=== PATIENT | female | born 1945 | race Caucasian/White ===

== ENCOUNTER → 2017-02-11 | Outpatient (CLI) | payer OTHER | END | disposition home or self-care (01) | LOC: LAB 08:29 | PROVIDERS: ATTEND Internal Medicine | DX: R44.2 Other hallucinations (principal); G43.909 Migraine, unspecified, not intractable, without status migrainosus | CPT/HCPCS: 36415; 82565; 84520 ==

== ENCOUNTER → 2017-02-21 | Outpatient (CLI) | payer OTHER, MEDICARE | END | disposition home or self-care (01) | LOC: LAB 07:56 | PROVIDERS: ATTEND Internal Medicine | DX: R90.89 Other abnormal findings on diagnostic imaging of central nervous system (principal) | CPT/HCPCS: 36415; 82565; 84520 ==

== ENCOUNTER → 2017-06-11 | Outpatient (CLI) | payer OTHER ==
[2017-06-11 09:58] LABS: Urine RBC None Seen /hpf (0 - 4)
[2017-06-11 10:02] LABS: Basophils # (auto) 0 uL; Basophils % (auto) 0.7 % (0.0-2.0); Eosinophils # (auto) 0.1 uL; Eosinophils % (auto) 3.2 % (0.0-7.0); Hematocrit 42.9 % (36.0-46.0); Hemoglobin 14.4 g/dL (12.2-16.2); Lymphocytes # (auto) 1.5 uL; Lymphocytes % (auto) 33.2 % (10.0-50.0); Mean Corpuscular Hemoglobin 29.1 pg (28.0-32.0); Mean Corpuscular Hgb Conc. 33.4 g/dL (32.0-36.0); Mean Corpuscular Volume 87.1 fL (80.0-100.0); Mean Platelet Volume 7.5 fL (6.9-10.8); Monocytes # (auto) 0.4 uL; Monocytes % (auto) 9.1 % (0.0-12.0); Neutrophils # (auto) 2.5 uL; Neutrophils % (auto) 53.8 % (37.0-80.0); Nucleated Red Blood Cells % 0.1 %; Platelet Count (auto) 187 10^3/uL (140-450); Red Cell Distribution Width 14.1 % (11.8-14.3); White Blood Cell 4.7 10^3/uL (4.4-10.8)
[2017-06-11 10:32] LABS: Albumin 3.7 g/dL (3.4-5.0); BUN/Creatinine Ratio 14.8; Bilirubin, Total 0.3 mg/dL (0.2-1.0); Calcium 8.8 mg/dL (8.5-10.1); Potassium 3.9 mmol/L (3.5-5.1); Total Protein 7.1 g/dL (6.4-8.2)
[2017-06-11 10:35] LABS: Urine Bilirubin Negative (Negative); Urine Blood Negative /uL (Negative); Urine Color Yellow (Yellow); Urine Glucose Normal (Normal); Urine Ketone Negative (Negative); Urine Nitrite Negative (Negative); Urine Squamous Epithelial Cell FEW /hpf (<5); Urine Urobilinogen Normal (Negative)
== END | disposition home or self-care (01) ==
LOC: LAB 09:37
PROVIDERS: ATTEND Internal Medicine
DX: I11.0 Hypertensive heart disease with heart failure (principal); I50.9 Heart failure, unspecified; J44.9 Chronic obstructive pulmonary disease, unspecified; G43.909 Migraine, unspecified, not intractable, without status migrainosus
CPT/HCPCS: 36415; 80053; 80061; 81001; 84443; 85025

== ENCOUNTER → 2017-12-04 | Outpatient (CLI) | payer MEDICARE, OTHER ==
[~2017-12-04] VITALS: Ht 147.3 cm; Wt 69.9 kg
[~2017-12-04] MED LIST: ACE3T PO; ADENOSINE 59 MG in GIVE UN-DILUTED 0 ML IV STA; ALBUTEROL SULF 2.5 MG/0.5ML(0.5%) NEB SOLN ONE; AMLO5TAB2 PO; CARI-277 PO; CYCL1TAB18 PO; FURO20TA3 PO; IPRAAER6 IN; IPRATROPIUM BROM 0.5 MG/2.5ML INH SOL ONE; MECL-87 PO; PERCOT PO; TOPI50TA32 PO; TRAZ50TA2 PO
[2017-12-04 09:21] VITALS: BP 137/79
== END | disposition home or self-care (01) ==
LOC: XY 08:12
PROVIDERS: ATTEND Internal Medicine
DX: J44.9 Chronic obstructive pulmonary disease, unspecified (principal); I11.0 Hypertensive heart disease with heart failure; I50.9 Heart failure, unspecified
CPT/HCPCS: 93017; J0153; 94640

== ENCOUNTER → 2017-12-25 | Outpatient (CLI) | payer OTHER ==
[~2017-12-25] MED LIST changes: -ADENOSINE 59 MG in GIVE UN-DILUTED 0 ML IV STA; -ALBUTEROL SULF 2.5 MG/0.5ML(0.5%) NEB SOLN ONE; -IPRATROPIUM BROM 0.5 MG/2.5ML INH SOL ONE
== END | disposition home or self-care (01) ==
LOC: XYW 08:09
PROVIDERS: ATTEND Internal Medicine
DX: J44.9 Chronic obstructive pulmonary disease, unspecified (principal); I11.0 Hypertensive heart disease with heart failure; I50.9 Heart failure, unspecified
CPT/HCPCS: 93306

== ENCOUNTER → 2018-01-06 | Outpatient (CLI) | payer OTHER, MEDICARE ==
[2018-01-06 13:19] LABS: Basophils # (auto) 0 uL; Basophils % (auto) 0.4 % (0.0-2.0); Eosinophils # (auto) 0.1 uL; Eosinophils % (auto) 2.9 % (0.0-7.0); Hematocrit 41.7 % (36.0-46.0); Hemoglobin 13.6 g/dL (12.2-16.2); Lymphocytes # (auto) 1.4 uL; Lymphocytes % (auto) 33.1 % (10.0-50.0); Mean Corpuscular Hemoglobin 28.4 pg (28.0-32.0); Mean Corpuscular Hgb Conc. 32.6 g/dL (32.0-36.0); Monocytes # (auto) 0.4 uL; Monocytes % (auto) 9.9 % (0.0-12.0); Neutrophils # (auto) 2.3 uL; Neutrophils % (auto) 53.7 % (37.0-80.0); Nucleated Red Blood Cells % 0.2 %; Platelet Count (auto) 193 10^3/uL (140-450); Red Blood Cells 4.79 10^6/uL (4.0-5.20); Red Cell Distribution Width 14.6 % (11.8-14.3); White Blood Cell 4.3 10^3/uL (4.4-10.8)
[2018-01-06 13:23] LABS: INR 0.91 (0.9-1.15); Partial Thromboplastin Time 23.6 sec (23.78-33.04); Prothrombin Time 9.8 sec (9.27-12.13)
[2018-01-06 14:20] LABS: Albumin 3.9 g/dL (3.4-5.0); Bilirubin, Total 0.3 mg/dL (0.2-1.0); Calcium 8.6 mg/dL (8.5-10.1); Potassium 3.9 mmol/L (3.5-5.1); Total Protein 7.2 g/dL (6.4-8.2)
== END | disposition home or self-care (01) ==
LOC: LAB 12:43
PROVIDERS: ATTEND Internal Medicine
DX: Z01.818 Encounter for other preprocedural examination (principal); I11.0 Hypertensive heart disease with heart failure; I50.9 Heart failure, unspecified; J44.9 Chronic obstructive pulmonary disease, unspecified
CPT/HCPCS: 36415; 80053; 85025; 85610; 85730

== ENCOUNTER 2018-01-08 10:36 | Day surgery (SDC) | payer MEDICARE, OTHER ==
[~2018-01-08] VITALS: Ht 147.3 cm; Wt 69.9 kg
[2018-01-08] MEDS ORDERED: LIDOCAINE 2%HCL (LOCAL ANESTH.) INJ 20ML MDV ONE (10:59)
[2018-01-08] MEDS ORDERED: IOHEXOL 350 MG/ML 100ML IJ ONE (10:59)
[2018-01-08] MEDS ORDERED: fentaNYL CITRATE 100 MCG/2 ML VL ONE (11:22)
[2018-01-08] MEDS ORDERED: ANGIOMAX 250 MG VIAL IV ONE (11:22)
[2018-01-08] MEDS ORDERED: SODIUM CHL 0.9% 0 ML ONE (11:23)
[2018-01-08] MEDS ORDERED: MIDAZOLAM HCL 1MG/1ML-2 ML VIAL ONE (11:23)
== END 2018-01-08 14:10 | disposition home or self-care (01) ==
LOC: CATH 10:36
PROVIDERS: ATTEND Internal Medicine
DX: I25.10 Atherosclerotic heart disease of native coronary artery without angina pectoris (principal); E66.9 Obesity, unspecified; I50.9 Heart failure, unspecified; J44.9 Chronic obstructive pulmonary disease, unspecified; I10 Essential (primary) hypertension; I73.9 Peripheral vascular disease, unspecified; Z88.1 Allergy status to other antibiotic agents; Z88.2 Allergy status to sulfonamides; Z88.8 Allergy status to other drugs, medicaments and biological substances; Z68.32 Body mass index [BMI] 32.0-32.9, adult; Z79.2 Long term (current) use of antibiotics; Z79.899 Other long term (current) drug therapy; Z79.891 Long term (current) use of opiate analgesic; Z86.73 Personal history of transient ischemic attack (TIA), and cerebral infarction without residual deficits
CPT/HCPCS: C1760; C1894; J1644; J2250; J3010; J7030; Q9967; 93458; 99152

== ENCOUNTER 2018-05-18 12:53 | Inpatient (IN) | payer MEDICARE, OTHER ==
[~2018-05-18] VITALS: Ht 149.9 cm; Wt 69.9 kg
[~2018-05-18 12:53] MED LIST changes: +AMLO5TAB13 PO; -AMLO5TAB2 PO
[2018-05-18] MEDS ORDERED: SODIUM CHLORIDE 0.9% 1,000 ML IVB ONE (13:14)
[2018-05-18 14:01] LABS: Basophils # (auto) 0 uL; Basophils % (auto) 0.4 % (0.0-2.0); Eosinophils # (auto) 0.1 uL; Eosinophils % (auto) 1.9 % (0.0-7.0); Hematocrit 42.7 % (36.0-46.0); Hemoglobin 14.2 g/dL (12.2-16.2); Lymphocytes # (auto) 1.7 uL; Lymphocytes % (auto) 28.2 % (10.0-50.0); Mean Corpuscular Hemoglobin 28.4 pg (28.0-32.0); Mean Corpuscular Hgb Conc. 33.1 g/dL (32.0-36.0); Mean Corpuscular Volume 85.8 fL (80.0-100.0); Monocytes # (auto) 0.6 uL; Monocytes % (auto) 9.5 % (0.0-12.0); Neutrophils # (auto) 3.6 uL; Platelet Count (auto) 191 10^3/uL (140-450); Red Blood Cells 4.98 10^6/uL (4.0-5.20); Red Cell Distribution Width 14.5 % (11.8-14.3)
[2018-05-18 14:16] LABS: INR 0.93 (0.9-1.15)
[2018-05-18 14:19] LABS: Albumin 3.7 g/dL (3.4-5.0); Anion Gap 7 (5-15); Blood Urea Nitrogen 16 mg/dL (7-18); Calcium 8.6 mg/dL (8.5-10.1); Carbon Dioxide 24 mmol/L (21-32); Chloride 109 mmol/L (98-107); Glucose 97 mg/dL (74-106); Magnesium 2.6 mg/dL (1.6-2.6); Potassium 3.9 mmol/L (3.5-5.1); Sodium 140 mmol/L (136-145)
[2018-05-18 14:25] LABS: Alanine Aminotransferase 16 U/L (13-56); Alkaline Phosphatase 101 U/L (45-117); Aspartate Aminotransferase 13 U/L (15-37); BUN/Creatinine Ratio 18.6; Bilirubin, Total 0.3 mg/dL (0.2-1.0); GFR African American 84 mL/min; GFR Non-African American 69 mL/min
[2018-05-18] MEDS ORDERED: ACETAMINOPHEN 325 MG TAB PO ONE (14:30)
[2018-05-18 14:45] LABS: Urine Bacteria FEW /hpf (None Seen); Urine Blood Negative /uL (Negative); Urine Mucus FEW (None Seen); Urine Specific Gravity 1.009 (1.001-1.035); Urine WBC 2 /hpf (0 - 5)
[2018-05-18] MEDS ORDERED: HYDROcodone-ACET 10/325MG TAB PO ONE (16:15)
[2018-05-18] MEDS ORDERED: MECLIZINE HCL 25 MG TAB PO PRN (17:30)
[2018-05-18] MEDS ORDERED: cefTRIAXone 1GM/50ML D5W 50 ML IV ONE (17:30)
[2018-05-18] MEDS ORDERED: MORPHINE SULFATE 4 MG/ML SYR/VIAL IV PRN (17:45)
[2018-05-18] MEDS ORDERED: DOCUSATE SOD 100 MG CAP PO PRN (17:45)
[2018-05-18] MEDS ORDERED: ONDANSETRON HCL 4 MG/2 ML VIAL IV PRN (17:45)
[2018-05-18] MEDS ORDERED: ACETAMINOPHEN 325 MG TAB PO PRN (17:45)
[2018-05-18] MEDS ORDERED: NITROGLYCERIN 0.4 MG SL TAB SL PRN (17:45)
[2018-05-18] MEDS: ALBUTEROL SULF 2.5 MG/0.5ML(0.5%) NEB SOLN NEB SCH (18:15)
[2018-05-18] MEDS: IPRATROPIUM BROM 0.5 MG/2.5ML INH SOL NEB SCH (18:15)
[2018-05-18] MEDS: ENOXAPARIN SOD 40 MG/0.4 ML SYRINGE SC SCH (18:37)
[2018-05-18] MEDS: SODIUM CHLOR 0.9% PF (SALINE LOCK) 10ML VIAL/SYR IV SCH (22:08)
[2018-05-18] MEDS: TOPIRAMATE 25 MG TAB PO SCH (22:11)
[2018-05-18] MEDS: METOPROLOL TARTRATE 25 MG TAB PO SCH (22:11)
[2018-05-18] MEDS: FAMOTIDINE 20 MG TAB PO SCH (22:11)
[2018-05-18] MEDS: TEMAZEPAM 15 MG CAP PO PRN (23:38)
[2018-05-18 23:43] VITALS: BP 145/72
[2018-05-19] MEDS: IPRATROPIUM BROM 0.5 MG/2.5ML INH SOL NEB SCH ×4 (00:30→19:21)
[2018-05-19] MEDS: ALBUTEROL SULF 2.5 MG/0.5ML(0.5%) NEB SOLN NEB SCH ×4 (00:30→19:21)
[2018-05-19 04:15] VITALS: BP 153/75
[2018-05-19] MEDS: HYDROcodone-ACET 5/325MG TAB PO PRN (04:28)
[2018-05-19 05:00] VITALS: BP 153/75
[2018-05-19] MEDS: SODIUM CHLOR 0.9% PF (SALINE LOCK) 10ML VIAL/SYR IV SCH ×3 (05:31→22:01)
[2018-05-19 07:49] LABS: Basophils # (auto) 0 uL; Basophils % (auto) 0.4 % (0.0-2.0); Eosinophils # (auto) 0.1 uL; Eosinophils % (auto) 2.1 % (0.0-7.0); Hematocrit 38.4 % (36.0-46.0); Hemoglobin 12.5 g/dL (12.2-16.2); Lymphocytes # (auto) 2.1 uL; Lymphocytes % (auto) 41.9 % (10.0-50.0); Mean Corpuscular Hgb Conc. 32.5 g/dL (32.0-36.0); Mean Corpuscular Volume 86.2 fL (80.0-100.0); Monocytes # (auto) 0.5 uL; Monocytes % (auto) 9.3 % (0.0-12.0); Neutrophils # (auto) 2.3 uL; Neutrophils % (auto) 46.3 % (37.0-80.0); Nucleated Red Blood Cells % 0.1 %; Platelet Count (auto) 171 10^3/uL (140-450); Red Blood Cells 4.46 10^6/uL (4.0-5.20); Red Cell Distribution Width 14.5 % (11.8-14.3); White Blood Cell 5.1 10^3/uL (4.4-10.8)
[2018-05-19 08:12] LABS: Potassium 3.8 mmol/L (3.5-5.1)
[2018-05-19 08:19] LABS: Albumin 3.4 g/dL (3.4-5.0); BUN/Creatinine Ratio 19.5; Bilirubin, Total 0.3 mg/dL (0.2-1.0); Calcium 8.6 mg/dL (8.5-10.1); Total Protein 6.4 g/dL (6.4-8.2)
[2018-05-19 09:00] VITALS: BP 142/68
[2018-05-19] MEDS: MULTIPLE VITAMIN TAB PO SCH (10:00)
[2018-05-19] MEDS: POTASSIUM CHLORIDE 8 MEQ TAB PO SCH (11:11)
[2018-05-19] MEDS: FAMOTIDINE 20 MG TAB PO SCH ×2 (11:12→22:02)
[2018-05-19] MEDS: TOPIRAMATE 25 MG TAB PO SCH ×2 (11:13→22:02)
[2018-05-19] MEDS: HCTZ 25 MG TAB PO SCH (11:13)
[2018-05-19] MEDS: amLODIPine BESYLATE 5 MG TAB PO SCH (11:14)
[2018-05-19] MEDS: ENOXAPARIN SOD 40 MG/0.4 ML SYRINGE SC SCH (11:14)
[2018-05-19] MEDS: METOPROLOL TARTRATE 25 MG TAB PO SCH ×2 (11:14→22:02)
[2018-05-19] MEDS: MORPHINE SULFATE 4 MG/ML SYR/VIAL IV PRN ×2 (11:23→16:13)
[2018-05-19] MEDS: cefTRIAXone 1GM/50ML D5W 50 ML IV SCH (11:23)
[2018-05-19 13:00] VITALS: BP 137/71
[2018-05-19 17:00] VITALS: BP 152/61
[2018-05-19] MEDS: TEMAZEPAM 15 MG CAP PO PRN (22:02)
[2018-05-19 22:20] VITALS: BP 134/70
[2018-05-20] MEDS: ALBUTEROL SULF 2.5 MG/0.5ML(0.5%) NEB SOLN NEB SCH ×3 (00:45→11:42)
[2018-05-20] MEDS: IPRATROPIUM BROM 0.5 MG/2.5ML INH SOL NEB SCH ×3 (00:46→11:42)
[2018-05-20 05:07] VITALS: BP 133/78
[2018-05-20] MEDS: SODIUM CHLOR 0.9% PF (SALINE LOCK) 10ML VIAL/SYR IV SCH ×2 (06:05→14:00)
[2018-05-20 06:20] LABS: Basophils # (auto) 0 uL; Basophils % (auto) 0.6 % (0.0-2.0); Eosinophils # (auto) 0.2 uL; Eosinophils % (auto) 3.8 % (0.0-7.0); Hematocrit 39.5 % (36.0-46.0); Hemoglobin 13.1 g/dL (12.2-16.2); Lymphocytes # (auto) 1.5 uL; Mean Corpuscular Hemoglobin 28.5 pg (28.0-32.0); Mean Corpuscular Hgb Conc. 33.2 g/dL (32.0-36.0); Monocytes # (auto) 0.6 uL; Monocytes % (auto) 12.1 % (0.0-12.0); Neutrophils # (auto) 2.7 uL; Neutrophils % (auto) 53.5 % (37.0-80.0); Nucleated Red Blood Cells % 0.2 %; Platelet Count (auto) 166 10^3/uL (140-450); Red Blood Cells 4.59 10^6/uL (4.0-5.20); Red Cell Distribution Width 14.4 % (11.8-14.3)
[2018-05-20 06:38] LABS: Calcium 8.7 mg/dL (8.5-10.1); Potassium 3.4 mmol/L (3.5-5.1)
[2018-05-20 06:40] LABS: BUN/Creatinine Ratio 23.2
[2018-05-20 08:57] VITALS: BP 135/71
[2018-05-20] MEDS: cefTRIAXone 1GM/50ML D5W 50 ML IV SCH (09:46)
[2018-05-20] MEDS: POTASSIUM CHLORIDE 8 MEQ TAB PO SCH (09:46)
[2018-05-20] MEDS: HCTZ 25 MG TAB PO SCH (09:46)
[2018-05-20] MEDS: MULTIPLE VITAMIN TAB PO SCH (09:47)
[2018-05-20] MEDS: METOPROLOL TARTRATE 25 MG TAB PO SCH (09:47)
[2018-05-20] MEDS: FAMOTIDINE 20 MG TAB PO SCH (09:47)
[2018-05-20] MEDS: amLODIPine BESYLATE 5 MG TAB PO SCH (09:47)
[2018-05-20] MEDS: ENOXAPARIN SOD 40 MG/0.4 ML SYRINGE SC SCH (09:48)
[2018-05-20] MEDS: HYDROcodone-ACET 5/325MG TAB PO PRN (09:48)
[2018-05-20] MEDS: TOPIRAMATE 25 MG TAB PO SCH (09:48)
[2018-05-20] MEDS ORDERED: POTASSIUM CHL 20 Meq TABLET PO ONE (10:00)
[2018-05-20 13:09] VITALS: BP 139/81
[2018-05-20 14:11] VITALS: BP 139/81
== END 2018-05-20 15:40 | disposition home or self-care (01) | DRG 65 ==
LOC: ER 12:53 → EDBD 12:53 → TELE 12:54 → TELE-CENTR 05-19 03:50
PROVIDERS: ADMIT Internal Medicine; ATTEND Internal Medicine
DX: I63.9 Cerebral infarction, unspecified (principal); N39.0 Urinary tract infection, site not specified; E87.6 Hypokalemia; G43.909 Migraine, unspecified, not intractable, without status migrainosus; H35.30 Unspecified macular degeneration; I10 Essential (primary) hypertension; J44.9 Chronic obstructive pulmonary disease, unspecified; K57.30 Diverticulosis of large intestine without perforation or abscess without bleeding; Z86.718 Personal history of other venous thrombosis and embolism; Z86.73 Personal history of transient ischemic attack (TIA), and cerebral infarction without residual deficits; Z90.710 Acquired absence of both cervix and uterus; Z90.49 Acquired absence of other specified parts of digestive tract; Z98.51 Tubal ligation status; R42 Dizziness and giddiness; M46.92 Unspecified inflammatory spondylopathy, cervical region; Z88.2 Allergy status to sulfonamides; Z88.7 Allergy status to serum and vaccine; Z88.8 Allergy status to other drugs, medicaments and biological substances
CPT/HCPCS: 36415; 70450; 71045; 80048; 80053; 81001; 82962; 83735; 84484; 85025; 85610; 85730; 87086; 93005; 93886; 94640; 94761; 96360; G0378; J0696

== ENCOUNTER → 2018-05-28 | Outpatient (CLI) | payer OTHER ==
[2018-05-28 09:32] LABS: Basophils # (auto) 0 uL; Basophils % (auto) 0.6 % (0.0-2.0); Eosinophils # (auto) 0.1 uL; Eosinophils % (auto) 2.6 % (0.0-7.0); Hemoglobin 13.4 g/dL (12.2-16.2); Lymphocytes # (auto) 1.4 uL; Lymphocytes % (auto) 34.1 % (10.0-50.0); Mean Corpuscular Hemoglobin 28.3 pg (28.0-32.0); Mean Corpuscular Hgb Conc. 32.6 g/dL (32.0-36.0); Mean Corpuscular Volume 86.7 fL (80.0-100.0); Monocytes # (auto) 0.4 uL; Monocytes % (auto) 10.6 % (0.0-12.0); Neutrophils # (auto) 2.1 uL; Neutrophils % (auto) 52.1 % (37.0-80.0); Nucleated Red Blood Cells % 0.2 %; Platelet Count (auto) 169 10^3/uL (140-450); Red Blood Cells 4.73 10^6/uL (4.0-5.20); Red Cell Distribution Width 14.2 % (11.8-14.3)
[2018-05-28 10:45] LABS: Albumin 3.7 g/dL (3.4-5.0); Calcium 8.7 mg/dL (8.5-10.1); Potassium 3.6 mmol/L (3.5-5.1)
[2018-05-28 11:00] LABS: BUN/Creatinine Ratio 19.1; Bilirubin, Total 0.4 mg/dL (0.2-1.0); Total Protein 6.9 g/dL (6.4-8.2)
== END | disposition home or self-care (01) ==
LOC: LAB 09:13
PROVIDERS: ATTEND Physician Assistant
DX: I10 Essential (primary) hypertension (principal); J44.9 Chronic obstructive pulmonary disease, unspecified; M54.9 Dorsalgia, unspecified; R07.1 Chest pain on breathing; R09.89 Other specified symptoms and signs involving the circulatory and respiratory systems
CPT/HCPCS: 36415; 80053; 80061; 83036; 85025

== ENCOUNTER → 2019-02-09 | Outpatient (CLI) | payer OTHER ==
[~2019-02-09] MED LIST changes: +ALBUTEROL SULF 2.5 MG/0.5ML(0.5%) NEB SOLN ONE; -CARI-277 PO; -CYCL1TAB18 PO; +FLUT250M2 INH; +MONT10TA34 PO
== END | disposition home or self-care (01) ==
LOC: RT 09:00
PROVIDERS: ATTEND Internal Medicine Pulmonary Disease
DX: R06.00 Dyspnea, unspecified (principal)
CPT/HCPCS: 94060; J7611

== ENCOUNTER → 2019-03-24 | Outpatient (CLI) | payer OTHER ==
[~2019-03-24] MED LIST changes: -ALBUTEROL SULF 2.5 MG/0.5ML(0.5%) NEB SOLN ONE; -AMLO5TAB13 PO; +AMLO5TAB15 PO
== END | disposition home or self-care (01) ==
LOC: XY 10:13
PROVIDERS: ATTEND Internal Medicine Pulmonary Disease
DX: R06.09 Other forms of dyspnea (principal); R06.02 Shortness of breath; Z86.718 Personal history of other venous thrombosis and embolism
CPT/HCPCS: 78582; A9540; A9558

== ENCOUNTER → 2019-04-01 | Outpatient (CLI) | payer OTHER ==
[2019-04-01 10:37] LABS: Basophils # (auto) 0 uL; Basophils % (auto) 0.8 % (0.0-2.0); Eosinophils # (auto) 0.1 uL; Hematocrit 41.4 % (36.0-46.0); Hemoglobin 13.8 g/dL (12.2-16.2); Lymphocytes % (auto) 24.6 % (10.0-50.0); Mean Corpuscular Hemoglobin 28.4 pg (28.0-32.0); Mean Corpuscular Hgb Conc. 33.3 g/dL (32.0-36.0); Mean Corpuscular Volume 85.1 fL (80.0-100.0); Monocytes # (auto) 0.5 uL; Neutrophils # (auto) 2.6 uL; Neutrophils % (auto) 60.6 % (37.0-80.0); Platelet Count (auto) 168 10^3/uL (140-450); Red Blood Cells 4.87 10^6/uL (4.0-5.20); White Blood Cell 4.2 10^3/uL (4.4-10.8)
[2019-04-01 10:48] LABS: Albumin 3.8 g/dL (3.4-5.0); BUN/Creatinine Ratio 16.7; Calcium 8.5 mg/dL (8.5-10.1); Potassium 3.9 mmol/L (3.5-5.1)
[2019-04-01 10:50] LABS: Bilirubin, Total 0.6 mg/dL (0.2-1.0)
== END | disposition home or self-care (01) ==
LOC: LAB 10:11
PROVIDERS: ATTEND Physician Assistant
DX: I10 Essential (primary) hypertension (principal); I25.10 Atherosclerotic heart disease of native coronary artery without angina pectoris; G62.9 Polyneuropathy, unspecified
CPT/HCPCS: 36415; 80053; 80061; 85025

== ENCOUNTER 2019-05-17 21:44 | Inpatient (IN) | payer OTHER ==
[~2019-05-17] VITALS: Ht 149.9 cm; Wt 76.0 kg
[2019-05-17] MEDS ORDERED: IPRATROPIUM BROM 0.5 MG/2.5ML INH SOL HHN ONE (22:45)
[2019-05-17] MEDS ORDERED: HYDROcodone-ACET 7.5/325MG TAB PO ONE (22:45)
[2019-05-17] MEDS ORDERED: ALBUTEROL SULF 2.5 MG/0.5ML(0.5%) NEB SOLN HHN ONE (22:45)
[2019-05-17 22:57] LABS: Basophils # (auto) 0 uL; Basophils % (auto) 0.5 % (0.0-2.0); Eosinophils # (auto) 0.1 uL; Eosinophils % (auto) 2.2 % (0.0-7.0); Hematocrit 43.9 % (36.0-46.0); Hemoglobin 14.6 g/dL (12.2-16.2); Lymphocytes # (auto) 1.9 uL; Lymphocytes % (auto) 31.3 % (10.0-50.0); Mean Corpuscular Hemoglobin 28.5 pg (28.0-32.0); Mean Corpuscular Hgb Conc. 33.2 g/dL (32.0-36.0); Mean Corpuscular Volume 85.8 fL (80.0-100.0); Monocytes # (auto) 0.8 uL; Neutrophils # (auto) 3.3 uL; Platelet Count (auto) 206 10^3/uL (140-450); Red Blood Cells 5.11 10^6/uL (4.0-5.20); Red Cell Distribution Width 14.1 % (11.8-14.3); White Blood Cell 6.2 10^3/uL (4.4-10.8)
[2019-05-17 23:19] LABS: Alanine Aminotransferase 20 U/L (13-56); Albumin 3.9 g/dL (3.4-5.0); Anion Gap 6 (5-15); Aspartate Aminotransferase 13 U/L (15-37); BUN/Creatinine Ratio 15.4; Blood Urea Nitrogen 16 mg/dL (7-18); Calcium 8.7 mg/dL (8.5-10.1); Carbon Dioxide 30 mmol/L (21-32); Chloride 106 mmol/L (98-107); GFR African American 67 mL/min; GFR Non-African American 55 mL/min; Glucose 90 mg/dL (74-106); Potassium 3.3 mmol/L (3.5-5.1); Sodium 142 mmol/L (136-145)
[2019-05-17 23:21] LABS: Urine Bacteria NONE SEEN /hpf (None Seen); Urine Blood Negative /uL (Negative); Urine Specific Gravity 1.007 (1.001-1.035); Urine WBC 1 /hpf (0 - 5)
[2019-05-17 23:23] LABS: Alkaline Phosphatase 106 U/L (45-117); Bilirubin, Total 0.2 mg/dL (0.2-1.0); Total Protein 7.3 g/dL (6.4-8.2)
[2019-05-18] VITALS (9 sets, daily range): BP systolic 101–126; BP diastolic 55–79
[2019-05-18] MEDS ORDERED: POTASSIUM EFFERVESENT TAB 25 MEQ PO ONE (00:30)
[2019-05-18] MEDS ORDERED: KETOROLAC TROMETH 30 MG/ML 1ML VIAL IV ONE (00:30)
[2019-05-18] MEDS ORDERED: TEMAZEPAM 15 MG CAP PO PRN (02:15)
[2019-05-18] MEDS ORDERED: ACETAMINOPHEN 500 MG TAB PO PRN (02:15)
--- NOTE | 2019-05-18 02:30 | NUR ---
RECEIVED PATIENT FROM ED, AWAKE, ALERT, ORIENTED X4. NO S/S OF RESPIRATORY DISTRESS, DENIES ANY PAIN. SKIN IS INTACT. ORIENTED ON PLAN OF CARE. BED IS LOCKED AND IN LOWEST POSITION, SIDE RAILS UP X2, CALL LIGHT WITHIN REACH. WILL CONTINUE TO MONITOR
[2019-05-18] MEDS ORDERED: MORPHINE SULF INJ 2 MG/ML SYRINGE 1ML IV PRN (02:45)
[2019-05-18] MEDS ORDERED: IPRATROPIUM BROM 0.5 MG/2.5ML INH SOL NEB PRN (02:45)
[2019-05-18] MEDS ORDERED: ALBUTEROL SULF 2.5 MG/0.5ML(0.5%) NEB SOLN NEB PRN (02:45)
[2019-05-18] MEDS ORDERED: MECLIZINE HCL 25 MG TAB PO PRN (03:00)
[2019-05-18] MEDS: HYDROcodone-ACET 5/325MG TAB PO PRN ×3 (05:05→18:40)
[2019-05-18] MEDS: IPRATROPIUM BROM 0.5 MG/2.5ML INH SOL NEB SCH ×3 (06:02→19:36)
[2019-05-18] MEDS: ALBUTEROL SULF 2.5 MG/0.5ML(0.5%) NEB SOLN NEB SCH ×3 (06:02→19:37)
[2019-05-18 06:17] LABS: Basophils # (auto) 0 uL; Basophils % (auto) 0.2 % (0.0-2.0); Eosinophils # (auto) 0.1 uL; Eosinophils % (auto) 1.5 % (0.0-7.0); Hematocrit 38.7 % (36.0-46.0); Lymphocytes # (auto) 1.8 uL; Lymphocytes % (auto) 28.8 % (10.0-50.0); Mean Corpuscular Hemoglobin 28.9 pg (28.0-32.0); Mean Corpuscular Hgb Conc. 33.5 g/dL (32.0-36.0); Mean Corpuscular Volume 86.2 fL (80.0-100.0); Monocytes # (auto) 0.8 uL; Monocytes % (auto) 12.3 % (0.0-12.0); Neutrophils # (auto) 3.6 uL; Neutrophils % (auto) 57.2 % (37.0-80.0); Nucleated Red Blood Cells % 0.2 %; Platelet Count (auto) 185 10^3/uL (140-450); Red Blood Cells 4.49 10^6/uL (4.0-5.20); Red Cell Distribution Width 14.5 % (11.8-14.3); White Blood Cell 6.3 10^3/uL (4.4-10.8)
[2019-05-18 06:29] LABS: Calcium 8.4 mg/dL (8.5-10.1); Potassium 4.1 mmol/L (3.5-5.1)
[2019-05-18 06:32] LABS: BUN/Creatinine Ratio 18.9
--- NOTE | 2019-05-18 07:30 | NUR ---
Opening Shift Note RECEIVED REPORT FROM NOC RN. Assumed care of patient, awake and alert. PATIENT ON OXYGEN AT 2 LPM VIA NASAL CANNULA WITH no S/S of distress/SOB or pain. BED IN LOWEST, LOCKED POSITION WITH SIDERAILS UP x2 AND CALL LIGHT WITHIN REACH. Instructed on POC and to call for assist PRN, will continue to monitor for changes Q1hr and PRN.
--- NOTE | 2019-05-18 07:43 | NUR ---
CARE ENDORSED TO AM SHIFT RN
[2019-05-18] MEDS ORDERED: TOPIRAMATE 25 MG TAB PO SCH (10:00)
[2019-05-18] MEDS: amLODIPine BESYLATE 5 MG TAB PO SCH (10:25)
[2019-05-18] MEDS: FUROSEMIDE 40 MG TAB PO SCH (10:25)
[2019-05-18] MEDS ORDERED: DOXYCYCLINE 100 MG TAB/CAP PO ONE (10:45)
--- NOTE | 2019-05-18 13:08 | NUR ---
DR. SARGENT AT BEDSIDE.
[2019-05-18] MEDS ORDERED: ADENOSINE 63 MG in GIVE UN-DILUTED 0 ML IV STA (13:30)
--- NOTE | 2019-05-18 13:45 | NUR ---
Respiratory note: PT AT PROCEDURE. UNABLE TO DRAW ABG ON RA AT THIS TIME. WILL INFORM RN.
[2019-05-18] MEDS: methylPREDNISolone SOD SUCC 125 MG/2 ML VL IV SCH ×2 (15:36→21:49)
--- NOTE | 2019-05-18 17:00 | NUR ---
Respiratory note: PT ON RA SPO2 DID NOT FALL BELOW 90%. UNABLE TO DRAW ABG AT THIS TIME. RT SUGGEST AMBULATION. WILL ENDORSE TO NOC SHIFT.
--- NOTE | 2019-05-18 19:35 | NUR ---
RESPIRATORY CULTURE AND URINE SEND OUT MISCELLANEOUS SAMPLE SENT TO LAB
[2019-05-18] MEDS: DOXYCYCLINE 100 MG TAB/CAP PO SCH (21:49)
[2019-05-18] MEDS: MONTELUKAST SODIUM 10 MG TAB PO SCH (21:49)
[2019-05-18] MEDS: traZODone HCL 50 MG TAB PO SCH (21:49)
[2019-05-19] MEDS: IPRATROPIUM BROM 0.5 MG/2.5ML INH SOL NEB SCH ×4 (00:17→19:11)
[2019-05-19] MEDS: ALBUTEROL SULF 2.5 MG/0.5ML(0.5%) NEB SOLN NEB SCH ×4 (00:17→19:10)
[2019-05-19 05:02] VITALS: BP 102/71
[2019-05-19] MEDS: methylPREDNISolone SOD SUCC 125 MG/2 ML VL IV SCH ×3 (05:31→21:42)
[2019-05-19 05:39] LABS: INR 0.96 (0.9-1.15); Partial Thromboplastin Time 23.5 sec (23.64-32.05)
[2019-05-19 05:53] LABS: BUN/Creatinine Ratio 24.3; Calcium 9.2 mg/dL (8.5-10.1); Potassium 3.9 mmol/L (3.5-5.1)
--- NOTE | 2019-05-19 07:38 | NUR ---
CARE ENDORSED TO AM SHIFT RN
[2019-05-19 08:00] VITALS: BP 141/73
[2019-05-19] MEDS: DOXYCYCLINE 100 MG TAB/CAP PO SCH ×2 (09:21→21:44)
[2019-05-19] MEDS: FUROSEMIDE 40 MG TAB PO SCH (09:22)
[2019-05-19] MEDS: amLODIPine BESYLATE 5 MG TAB PO SCH (09:22)
[2019-05-19] MEDS: SOD CHL 0.45% 1,000 ML IV SCH ×2 (10:45→21:07)
[2019-05-19] MEDS: HYDROcodone-ACET 5/325MG TAB PO PRN (10:45)
[2019-05-19] MEDS: oxyCODONE ER 10 MG TAB PO PRN (11:08)
[2019-05-19 12:00] VITALS: BP 137/74
[2019-05-19] MEDS ORDERED: IOHEXOL 350 MG/ML 100ML IJ ONE (13:52)
--- NOTE | 2019-05-19 15:00 | NUR ---
BACK TO ROOM CTA CHEST COMPLETED
[2019-05-19 16:59] VITALS: BP 124/65
--- NOTE | 2019-05-19 18:43 | NUR ---
IV insertion IV access obtained, via clean sterile technique by inserting 22 gauge catheter at after attempt(s). IV secured properly. No trauma to site. Patient tolerated procedure well.
--- NOTE | 2019-05-19 19:10 | NUR ---
OPENING NOTE- NOC SHIFT PATIENT IS IN BED, BED IS LOCKED AT LOWEST, BED RAILS UP X2 AND HEAD OF BED IS UP>30 DEGREES FOR SAFETY PRECAUTIONS. PATIENT DENIES PAIN AT THIS TIME. PATIENT WEARING NC AT 2L. PATIENT BECOMES EASILY DISTRESSED WITH MINIMAL ACTIVITY AND STATES "IT IS VERY DIFFICULT TO CATCH MY BREATH." DISCUSSED POC WITH PATIENT AND INSTRUCTED PATIENT TO CALL PRN; PATIENT VERBALIZED UNDERSTANDING. WILL CONTINUE TO MONITOR Q1H AND PRN.
--- NOTE | 2019-05-19 20:00 | NUR ---
DOCTOR MARSHALL AT BEDSIDE FOR NEURO CONSULT.
[2019-05-19] MEDS: traZODone HCL 50 MG TAB PO SCH (21:42)
[2019-05-19] MEDS: MONTELUKAST SODIUM 10 MG TAB PO SCH (21:43)
[2019-05-19] MEDS: METOCLOPRAMIDE HCL 10 MG TAB PO SCH (21:43)
[2019-05-19 21:52] VITALS: BP 150/80
--- NOTE | 2019-05-19 22:10 | NUR ---
LOW SAT O2 WITHOUT NC OXYGEN. PATIENT UP TO BATHROOM. STEADY GAIT NOTED. PATIENT IS IN DISTRESS WITH MINIMAL ACTIVITY. SAT O2 WITHOUT NC OXYGEN TO BATHROOM WAS 87% UPON RETURN TO BED.
[2019-05-20] VITALS (7 sets, daily range): BP systolic 118–160; BP diastolic 58–88
[2019-05-20] MEDS: IPRATROPIUM BROM 0.5 MG/2.5ML INH SOL NEB SCH ×4 (00:39→18:36)
[2019-05-20] MEDS: ALBUTEROL SULF 2.5 MG/0.5ML(0.5%) NEB SOLN NEB SCH ×4 (00:39→18:36)
[2019-05-20] MEDS: SOD CHL 0.45% 1,000 ML IV SCH ×3 (02:24→18:45)
--- NOTE | 2019-05-20 06:02 | NUR ---
RT AT BEDSIDE FOR SCHEDULED TREATMENT.
[2019-05-20] MEDS: METOCLOPRAMIDE HCL 10 MG TAB PO SCH ×3 (06:11→22:35)
[2019-05-20] MEDS: methylPREDNISolone SOD SUCC 125 MG/2 ML VL IV SCH ×3 (06:11→22:34)
[2019-05-20] MEDS: oxyCODONE ER 10 MG TAB PO PRN ×2 (06:12→20:04)
--- NOTE | 2019-05-20 07:20 | NUR ---
AWAKE, NO SOB, BREATHING NORMAL, O2 SAT 94% ON RA. STILL GET VERY WINDED, SOB AFTER ACTIVITY.
[2019-05-20] MEDS ORDERED: DexAMETHasone INJECTION 10 MG in D5W 5% 50 ML IV SCH (10:00)
[2019-05-20] MEDS: amLODIPine BESYLATE 5 MG TAB PO SCH (10:05)
[2019-05-20] MEDS: DOXYCYCLINE 100 MG TAB/CAP PO SCH (10:06)
[2019-05-20] MEDS: FUROSEMIDE 40 MG TAB PO SCH (10:06)
--- NOTE | 2019-05-20 11:15 | NUR ---
IV removal IV DC'd with clean sterile technique, catheter fully intact. Pressure dressing applied to site. Patient tolerated well. NOTE: ACCESS INFILTRATED.
--- NOTE | 2019-05-20 11:20 | NUR ---
OFF UNIT FOR XRAY OF NECK.
--- NOTE | 2019-05-20 14:38 | NUR ---
DR VÁSQUEZ HERE, SEEN AND EXAMINED PATIENT. ORDER NOTED AND ENTERED.
--- NOTE | 2019-05-20 15:23 | NUR ---
NUTRITION ASSESSMENT NOTES Please refer to link notes of nutrition screen form filed under the intervention section of the plan of care for further details. Est. Needs: 1150 kcal to 1550 kcal (15-20 kcal/kgBW), 45 gms to 54 gms pro (1.0-1.2 gms/kgIBW: 45 kg). Will continue to monitor pertinent labs and reassess nutrient need prn Thank you. Addendum: 05/20/19 at [address] Amended: Links added.
--- NOTE | 2019-05-20 16:15 | NUR ---
assessment Patient has no post discharge needs at this time. Addendum: 05/20/19 at 1615 by Margaret GU Amended: Links added.
[2019-05-20] MEDS: PIPERACILLIN-TAZOB 3.375GM 100 ML IV SCH (17:55)
--- NOTE | 2019-05-20 18:27 | NUR ---
PLAN FOR CT OF NECK WITH CONTRAST TOMORROW, PATIENT MADE AWARE NOT TO EAT AT LEAST 4 HOURS PRIOR TO PROCEDURE, WILL ENDORSE TO FIND OUT TIME OF PROCEDURE TOMORROW.
--- NOTE | 2019-05-20 19:30 | NUR ---
Opening Shift Note Assumed care of patient. Patient is awake and alert. No S/S of distress/SOB or pain. Instructed on POC and to call for assist PRN, will continue to monitor for changes. Bed locked in lowest position and bed rails up x2. Call light within reach.
[2019-05-20] MEDS: traZODone HCL 50 MG TAB PO SCH (22:35)
[2019-05-20] MEDS: MONTELUKAST SODIUM 10 MG TAB PO SCH (22:35)
[2019-05-21] MEDS: ALBUTEROL SULF 2.5 MG/0.5ML(0.5%) NEB SOLN NEB SCH ×4 (00:07→18:11)
[2019-05-21] MEDS: IPRATROPIUM BROM 0.5 MG/2.5ML INH SOL NEB SCH ×4 (00:08→18:11)
[2019-05-21] MEDS: PIPERACILLIN-TAZOB 3.375GM 100 ML IV SCH ×4 (01:09→18:27)
[2019-05-21] MEDS: SOD CHL 0.45% 1,000 ML IV SCH ×3 (02:49→18:45)
[2019-05-21 04:49] VITALS: BP 107/62
[2019-05-21] MEDS: METOCLOPRAMIDE HCL 10 MG TAB PO SCH ×3 (06:00→21:51)
[2019-05-21] MEDS: methylPREDNISolone SOD SUCC 125 MG/2 ML VL IV SCH ×3 (06:00→21:51)
[2019-05-21 06:16] LABS: BUN/Creatinine Ratio 23.5; Calcium 8.4 mg/dL (8.5-10.1)
--- NOTE | 2019-05-21 07:26 | NUR ---
Opening Shift Note Assumed care of patient, asleep, arouses to name and alert. No S/S of distress/SOB. Patient rates pain at a 3/10 and stated that she will wait for pain medications. Bed in lowest and locked position with side rails up x2 and call light in reach. Instructed on POC and to call for assist PRN, will continue to monitor for changes Q1hr and PRN.
--- NOTE | 2019-05-21 08:00 | NUR ---
RECEIVED CALL FROM RADIOLOGY. PER RECONCILIATION ANALYST PATIENT OKAY TO EAT BREAKFAST AND NPO AFTER BREAKFAST.
[2019-05-21 08:30] VITALS: BP 95/50
[2019-05-21] MEDS ORDERED: IOHEXOL 300 MG/ML 100ML BOTTLE IJ ONE (09:23)
[2019-05-21] MEDS: amLODIPine BESYLATE 5 MG TAB PO SCH (10:00)
--- NOTE | 2019-05-21 10:08 | NUR ---
IV insertion IV access obtained, via clean sterile technique by inserting 20 gauge catheter at LEFT FA after 1 attempt(s). IV secured properly. No trauma to site. Patient tolerated well.
[2019-05-21] MEDS: FUROSEMIDE 40 MG TAB PO SCH (10:15)
[2019-05-21] MEDS: oxyCODONE ER 10 MG TAB PO PRN (10:19)
[2019-05-21 12:09] VITALS: BP 123/73
[2019-05-21 17:00] VITALS: BP 144/71
--- NOTE | 2019-05-21 19:30 | NUR ---
Opening Shift Note Assumed care of patient. Patient awake and alert with sitter at bedside. No S/S of distress/SOB or pain. Instructed on POC and to call for assist PRN, will continue to monitor for changes. Bed locked in lowest position and bed rails up x2. Call light within reach. Addendum: 05/22/19 at 0659 by DONNY LANGLEY RN RN No sitter at bedside
--- NOTE | 2019-05-21 19:30 | NUR ---
ENDORSED CARE TO NIGHT, RNDONNY.
[2019-05-21] MEDS: traZODone HCL 50 MG TAB PO SCH (21:50)
[2019-05-21] MEDS: MONTELUKAST SODIUM 10 MG TAB PO SCH (21:51)
[2019-05-21 22:00] VITALS: BP 155/79
[2019-05-22] MEDS: PIPERACILLIN-TAZOB 3.375GM 100 ML IV SCH ×2 (00:29→06:20)
[2019-05-22] MEDS: ALBUTEROL SULF 2.5 MG/0.5ML(0.5%) NEB SOLN NEB SCH ×4 (00:35→18:29)
[2019-05-22] MEDS: IPRATROPIUM BROM 0.5 MG/2.5ML INH SOL NEB SCH ×4 (00:35→18:28)
[2019-05-22] MEDS: SOD CHL 0.45% 1,000 ML IV SCH (02:59)
[2019-05-22 05:00] VITALS: BP 144/79
[2019-05-22] MEDS ORDERED: methylPREDNISolone SOD SUCC 125 MG/2 ML VL IV SCH (06:00)
[2019-05-22] MEDS: METOCLOPRAMIDE HCL 10 MG TAB PO SCH (06:21)
--- NOTE | 2019-05-22 06:45 | NUR ---
IV dressing change
--- NOTE | 2019-05-22 07:35 | NUR ---
Opening Shift Note Assumed care of patient, asleep, arouses to name and alert. No S/S of distress/SOB. Patient denies having any pain at this time. Bed in lowest and locked position with side rails up x2 and call light in reach. Instructed on POC and to call for assist PRN, will continue to monitor for changes Q1hr and PRN.
--- NOTE | 2019-05-22 08:10 | NUR ---
PATIENT STATED THAT HER HOME MEDICATIONS WERE BROUGHT INTO THE ER AND THE RN TOOK THE MEDICATIONS "THROUGH THE DOUBLE DOORS" THE PATIENT STATED THAT SHE HAD NOT SEEN HER MEDICATIONS SINCE THEN. THIS RN WILL CALL ER AND PHARMACY REGARDING PT HOME MEDICATIONS.
--- NOTE | 2019-05-22 08:20 | NUR ---
CALLED PHARMACY AND BILLING AND INSURANCE COORDINATOR STATED THAT THEY DO NOT HAVE ANY HOME MEDICATIONS FROM THIS PATIENT.
[2019-05-22 08:30] VITALS: BP 145/76
--- NOTE | 2019-05-22 08:30 | NUR ---
CALLED ER AND THE PTS HOME MEDICATIONS WERE NOT IN THE ER.
[2019-05-22] MEDS: FUROSEMIDE 40 MG TAB PO SCH (10:14)
[2019-05-22] MEDS: amLODIPine BESYLATE 5 MG TAB PO SCH (10:14)
[2019-05-22] MEDS ORDERED: POTASSIUM CHL 20 Meq TABLET PO ONE (11:00)
[2019-05-22] MEDS ORDERED: FUROSEMIDE 20 MG/2 ML VIAL IV ONE (11:00)
--- NOTE | 2019-05-22 11:30 | NUR ---
PATIENT AMBULATING. O2 SATURATION AT 92% DURING AMBULATION. PATIENT STATED SHE IS STILL SOB SHE AMBULATES. MD LYNCH NOTIFIED.
[2019-05-22] MEDS: methylPREDNISolone SOD SUCC 125 MG/2 ML VL IV SCH ×2 (12:40→21:56)
--- NOTE | 2019-05-22 12:50 | NUR ---
IV removal RIGHT HAND IV DC'd with clean sterile technique, catheter fully intact. Pressure dressing applied to site. Patient tolerated well.
[2019-05-22 13:25] VITALS: BP_SYST 142; BP_SYST 143; BP_DIAS 62; BP_DIAS 75
[2019-05-22 17:11] VITALS: BP 156/77
--- NOTE | 2019-05-22 19:24 | NUR ---
ENDORSED CARE TO ENTRY LEVEL FINANCE RNDYLLAN.
--- NOTE | 2019-05-22 19:30 | NUR ---
Opening Shift Note Assumed care of patient, awake and alert. No S/S of distress/SOB or pain. Safety measures in place bed in lowest position, side rails x 2 up, and call light within reach. Instructed on POC and to call for assist PRN, will continue to monitor for changes Q1hr and PRN.
[2019-05-22] MEDS: MONTELUKAST SODIUM 10 MG TAB PO SCH (21:55)
[2019-05-22] MEDS: traZODone HCL 50 MG TAB PO SCH (21:56)
[2019-05-22 22:00] VITALS: BP 154/81
--- NOTE | 2019-05-22 23:35 | NUR ---
IV removal IV DC'd with sterile technique, catheter fully intact. Pressure dressing applied to site. Patient tolerated procedure well.
--- NOTE | 2019-05-22 23:43 | NUR ---
IV insertion IV access obtained, via clean sterile technique by inserting 22 gauge catheter at right hand after. IV secured properly. No trauma to site. Patient tolerated procedure well.
[2019-05-23] VITALS (7 sets, daily range): BP systolic 131–155; BP diastolic 73–99
[2019-05-23] MEDS: IPRATROPIUM BROM 0.5 MG/2.5ML INH SOL NEB SCH ×4 (01:00→18:00)
[2019-05-23] MEDS: ALBUTEROL SULF 2.5 MG/0.5ML(0.5%) NEB SOLN NEB SCH ×4 (01:00→18:00)
--- NOTE | 2019-05-23 08:00 | NUR ---
ASSESSMENT NOTE PATIENT IS RESTING IN BED COMFORTABLY, NO DISTRESS NOTED, OXYGEN 2 L NC, SELF REPOSITION, ABLE TO VERBALIS HER DEMANDS, PAIN 0/10 AT THIS TIME, CALL LIGHT WITHIN REACH
[2019-05-23] MEDS: methylPREDNISolone SOD SUCC 125 MG/2 ML VL IV SCH (09:15)
[2019-05-23] MEDS: amLODIPine BESYLATE 5 MG TAB PO SCH (09:16)
[2019-05-23] MEDS: FUROSEMIDE 40 MG TAB PO SCH (09:17)
[2019-05-23] MEDS ORDERED: LEVOFLOXACIN 250 MG TAB PO SCH (10:00)
--- NOTE | 2019-05-23 10:35 | NUR ---
DR MARCUS AT BED SIDE FOLLOWING UP WITH PT, PT STATED < I FEEL MUCH BETTER COMPARING WHEN I CAME> PT ON 2 L OXYGEN NC, DR MARCUS STOP IT, ENCOURAGED PT TO GET OUT OF BED AND AMBULATE WITH HER IN THE HALLWAYS.
--- NOTE | 2019-05-23 10:45 | NUR ---
PT IS BACK TO HER ROOM BY DR PADILLA, NO SHORTNESS OF BREATH NOTED, 94 ON ROOM AIR, SAT ON CHAIR AT BED SIDE
[2019-05-23] MEDS ORDERED: HYDROcodone-ACET 7.5/325MG TAB PO PRN (11:00)
--- NOTE | 2019-05-23 13:58 | NUR ---
Nutrition Follow-up Notes Wt.: 76.0 kg as of yesterday. Pt's talking with MD at bedside during rounds this morning. Pt's no signs of distress noted earlier, currently on Cardiac: 2 gms Na, Low Chol, Low Fat diet with adequate PO intake aeb 75% ave. consumed meals (x6) in last 2.5 days. Est. Needs: 1150 kcal to 1550 kcal (15-20 kcal/kgBW), 45 gms to 54 gms pro (1.0-1.2 gms/kgIBW: 45 kg). Will continue to monitor pertinent labs and reassess nutrient need prn Labs: Gluc 134 H, Cl 108 H, BUN 23 H, Ca 8.4 L Skin: Saleem scale 21, low risk, skin intact per educational administrator. GI: Pt had 1 BM this morning per educational administrator. PES: Altered nutrition related lab values r/t current/chronic medical condition aeb hyperglycemia, elev. renal labs, TSH levels Obesity r/t food intake more than body requirement aeb 174% IBW, BMI 34.5 kg/m2 and increased body adiposity Will continue to monitor PO intake, skin status, pertinent labs and weight trend. F/u in 3 to 5 days. Rec.: 1.) Continue close supervision during meals. 2.) Refer pt to RD for further nutrition education and weight monitoring upon discharge. 3.) Continue current plan of care.
--- NOTE | 2019-05-23 14:00 | NUR ---
FAMILY PATIENT'S AT BED SIDE
--- NOTE | 2019-05-23 14:45 | NUR ---
DR RUBY AT BED SIDE FOLLOWING UP ON PT
--- NOTE | 2019-05-23 15:00 | NUR ---
DR RUBY / HEAVY FORGER INFORM ME THAT PT IS CLEARED TO GO HOME
--- NOTE | 2019-05-23 15:06 | NUR ---
PAGE DR MARCUS PT WOULD LIKE TO GO HOME
--- NOTE | 2019-05-23 15:15 | NUR ---
DR MARCUS CALLED BACK, SAID SHE WILL BE HERE SOON TO DISCHARGE PT HOME
--- NOTE | 2019-05-23 15:20 | NUR ---
PT MADE AWARE TO WAIT FOR DR YE
--- NOTE | 2019-05-23 17:30 | NUR ---
PAGE DR MARCUS AGAIN, PT WOULD LIKE TO GO HOME
--- NOTE | 2019-05-23 17:35 | NUR ---
DR MARCUS AT BED SIDE WITH DISCHARGE INSTRUCTION, TO RESUME HER NORCO AND STOP OXYCODONE
--- NOTE | 2019-05-23 17:47 | NUR ---
Discharge instructions given as ordered. Encourage to follow up with PMD as instructed. All questions and concerns addressed. Patient verbalized understanding. Medication reconciliation form completed and copy given to patient.IV removed with catheter intact, pressure dressing applied. Patient taken to vehicle via wheelchair with all personal belongings, accompanied by staff and family member. No distress noted at time of departure.
== END 2019-05-23 19:45 | disposition home or self-care (01) | DRG 189 ==
LOC: EDBD 21:44 → ER 21:49 → OVERFLOW 21:50 → EAST 05-18 02:39
PROVIDERS: ADMIT Nurse Practitioner Family; ATTEND Internal Medicine
DX: J96.01 Acute respiratory failure with hypoxia (principal); J18.9 Pneumonia, unspecified organism; J44.1 Chronic obstructive pulmonary disease with (acute) exacerbation; F11.20 Opioid dependence, uncomplicated; J44.0 Chronic obstructive pulmonary disease with (acute) lower respiratory infection; G43.909 Migraine, unspecified, not intractable, without status migrainosus; I10 Essential (primary) hypertension; I67.2 Cerebral atherosclerosis; E87.6 Hypokalemia; Z86.73 Personal history of transient ischemic attack (TIA), and cerebral infarction without residual deficits; M41.9 Scoliosis, unspecified; E11.9 Type 2 diabetes mellitus without complications; I25.10 Atherosclerotic heart disease of native coronary artery without angina pectoris; I50.9 Heart failure, unspecified; I35.1 Nonrheumatic aortic (valve) insufficiency; E27.8 Other specified disorders of adrenal gland; F17.200 Nicotine dependence, unspecified, uncomplicated; H35.30 Unspecified macular degeneration; I11.0 Hypertensive heart disease with heart failure; I27.21 Secondary pulmonary arterial hypertension; G89.29 Other chronic pain; J20.9 Acute bronchitis, unspecified; Z79.4 Long term (current) use of insulin; Z80.6 Family history of leukemia; Z80.8 Family history of malignant neoplasm of other organs or systems; Z82.49 Family history of ischemic heart disease and other diseases of the circulatory system; Z86.718 Personal history of other venous thrombosis and embolism; Z90.49 Acquired absence of other specified parts of digestive tract; Z90.710 Acquired absence of both cervix and uterus; Z88.2 Allergy status to sulfonamides; Z88.7 Allergy status to serum and vaccine; Z79.899 Other long term (current) drug therapy
CPT/HCPCS: 36415; 36600; 70360; 70450; 70491; 71045; 71046; 71250; 71275; 78452; 80048; 80053; 81001; 82805; 83036; 83735; 83880; 84439; 84443; 84484; 85025; 85379; 85610; 85652; 85730; 87070; 87205; 87804; 93005; 93017; 93306; 93970; 94060; 94640; 94761; G0378; J0153; J1100; J1885; J2543; J7060

== ENCOUNTER → 2019-12-04 | Outpatient (CLI) | payer OTHER, MEDICARE ==
[~2019-12-04] MED LIST changes: -IPRAAER6 IN; -MECL-87 PO
[2019-12-04 11:23] LABS: Basophils # (auto) 0 10 ^3/uL (0-0.2); Basophils % (auto) 0.7 % (0.0-2.0); Eosinophils # (auto) 0.1 10 ^3/uL (0-0.8); Eosinophils % (auto) 1.5 % (0.0-7.0); Hematocrit 42.2 % (36.0-46.0); Hemoglobin 13.7 g/dL (12.2-16.2); Lymphocytes # (auto) 1.3 10 ^3/uL (0.4-5.4); Lymphocytes % (auto) 20.4 % (10.0-50.0); Mean Corpuscular Hemoglobin 27.6 pg (28.0-32.0); Mean Corpuscular Hgb Conc. 32.4 g/dL (32.0-36.0); Mean Corpuscular Volume 85.3 fL (80.0-100.0); Monocytes # (auto) 0.9 10 ^3/uL (0-1.3); Monocytes % (auto) 13.2 % (0.0-12.0); Neutrophils # (auto) 4.2 10 ^3/uL (1.6-8.6); Neutrophils % (auto) 64.2 % (37.0-80.0); Nucleated Red Blood Cells % 0.1 %; Platelet Count (auto) 193 10^3/uL (140-450); Red Blood Cells 4.95 10^6/uL (4.0-5.20); Red Cell Distribution Width 15.4 % (11.8-14.3); White Blood Cell 6.6 10^3/uL (4.4-10.8)
== END | disposition home or self-care (01) ==
LOC: LAB 11:09
PROVIDERS: ATTEND Internal Medicine Pulmonary Disease
DX: J45.909 Unspecified asthma, uncomplicated (principal)
CPT/HCPCS: 36415; 82785; 85025

== ENCOUNTER → 2020-04-28 | Outpatient (CLI) | payer OTHER ==
[2020-04-28 09:59] LABS: Basophils # (auto) 0 10 ^3/uL (0-0.2); Basophils % (auto) 0.4 % (0.0-2.0); Eosinophils # (auto) 0.1 10 ^3/uL (0-0.8); Eosinophils % (auto) 2.8 % (0.0-7.0); Hematocrit 41.4 % (36.0-46.0); Hemoglobin 13.7 g/dL (12.2-16.2); Lymphocytes # (auto) 1.8 10 ^3/uL (0.4-5.4); Lymphocytes % (auto) 36.5 % (10.0-50.0); Mean Corpuscular Hemoglobin 28.1 pg (28.0-32.0); Mean Corpuscular Hgb Conc. 33.1 g/dL (32.0-36.0); Mean Corpuscular Volume 84.7 fL (80.0-100.0); Monocytes # (auto) 0.6 10 ^3/uL (0-1.3); Monocytes % (auto) 11.8 % (0.0-12.0); Neutrophils # (auto) 2.4 10 ^3/uL (1.6-8.6); Neutrophils % (auto) 48.5 % (37.0-80.0); Platelet Count (auto) 208 10^3/uL (140-450); Red Blood Cells 4.88 10^6/uL (4.0-5.20)
[2020-04-28 10:29] LABS: Albumin 3.6 g/dL (3.4-5.0); Potassium 4.2 mmol/L (3.5-5.1)
[2020-04-28 10:35] LABS: BUN/Creatinine Ratio 20.5; Bilirubin, Total 0.4 mg/dL (0.2-1.0); Total Protein 6.4 g/dL (6.4-8.2)
== END | disposition home or self-care (01) ==
LOC: LAB 09:47
PROVIDERS: ATTEND Physician Assistant
DX: I25.10 Atherosclerotic heart disease of native coronary artery without angina pectoris (principal); I10 Essential (primary) hypertension; J44.9 Chronic obstructive pulmonary disease, unspecified; I73.9 Peripheral vascular disease, unspecified
CPT/HCPCS: 36415; 80053; 80061; 85025

== ENCOUNTER 2020-05-30 10:41 | Inpatient (IN) | payer MEDICARE, OTHER ==
[~2020-05-30] VITALS: Ht 147.3 cm; Wt 81.2 kg
[2020-05-30 11:22] LABS: Basophils # (auto) 0 10 ^3/uL (0-0.2); Basophils % (auto) 0.5 % (0.0-2.0); Eosinophils # (auto) 0.2 10 ^3/uL (0-0.8); Eosinophils % (auto) 2.3 % (0.0-7.0); Hematocrit 41.9 % (36.0-46.0); Hemoglobin 14.1 g/dL (12.2-16.2); Lymphocytes # (auto) 1.6 10 ^3/uL (0.4-5.4); Lymphocytes % (auto) 23.6 % (10.0-50.0); Mean Corpuscular Hemoglobin 28.4 pg (28.0-32.0); Mean Corpuscular Hgb Conc. 33.6 g/dL (32.0-36.0); Mean Corpuscular Volume 84.6 fL (80.0-100.0); Monocytes # (auto) 0.7 10 ^3/uL (0-1.3); Monocytes % (auto) 10.8 % (0.0-12.0); Neutrophils # (auto) 4.4 10 ^3/uL (1.6-8.6); Neutrophils % (auto) 62.8 % (37.0-80.0); Platelet Count (auto) 246 10^3/uL (140-450); Red Blood Cells 4.95 10^6/uL (4.0-5.20); Red Cell Distribution Width 14.1 % (11.8-14.3); White Blood Cell 6.9 10^3/uL (4.4-10.8)
[2020-05-30 11:40] LABS: Albumin 3.9 g/dL (3.4-5.0); Anion Gap 6 (5-15); Blood Urea Nitrogen 20 mg/dL (7-18); Carbon Dioxide 29 mmol/L (21-32); Chloride 107 mmol/L (98-107); Glucose 95 mg/dL (74-106); Magnesium 2.7 mg/dL (1.6-2.6); Potassium 3.6 mmol/L (3.5-5.1); Sodium 142 mmol/L (136-145)
[2020-05-30 11:48] LABS: Alanine Aminotransferase 22 U/L (13-56); Alkaline Phosphatase 112 U/L (45-117); Aspartate Aminotransferase 17 U/L (15-37); BUN/Creatinine Ratio 20.8; Bilirubin, Total 0.3 mg/dL (0.2-1.0); GFR African American 73 mL/min; GFR Non-African American 61 mL/min; Total Protein 7.4 g/dL (6.4-8.2)
[2020-05-30] MEDS ORDERED: ALBUTEROL SULF 2.5 MG/0.5ML(0.5%) NEB SOLN HHN ONE (12:00)
[2020-05-30] MEDS ORDERED: IPRATROPIUM BROM 0.5 MG/2.5ML INH SOL HHN ONE (12:00)
[2020-05-30] MEDS ORDERED: methylPREDNISolone SOD SUCC 125 MG/2 ML VL IV ONE (12:00)
[2020-05-30] MEDS ORDERED: ALBUTEROL SULF 2.5 MG/0.5ML(0.5%) NEB SOLN ONE (12:11)
[2020-05-30] MEDS ORDERED: IPRATROPIUM BROM 0.5 MG/2.5ML INH SOL ONE (12:11)
[2020-05-30] MEDS ORDERED: NITROGLYCERIN 0.4 MG SL TAB SL PRN ×2 (12:30→17:30)
[2020-05-30] MEDS ORDERED: MORPHINE SULF INJ 2 MG/ML SYRINGE 1ML IV PRN ×3 (12:30→17:30)
[2020-05-30] MEDS ORDERED: AMLO10TA13 PO (13:29)
[2020-05-30] MEDS ORDERED: ISOS30TA4 PO (13:30)
[2020-05-30] MEDS ORDERED: TIZA4CAP PO (13:31)
[2020-05-30] MEDS ORDERED: ALBUAER3 IN (13:31)
[2020-05-30 17:00] VITALS: BP 155/70
[2020-05-30] MEDS ORDERED: NIFEdipine ER 30 MG TAB PO ONE (17:30)
[2020-05-30] MEDS ORDERED: TEMAZEPAM 15 MG CAP PO PRN (17:30)
[2020-05-30] MEDS ORDERED: ALUM & MAG HYDROX-SIMETH LIQ(MAALOX) 30 ML PO PRN (17:30)
[2020-05-30] MEDS ORDERED: METHOCARBAMOL 500 MG TAB PO PRN (17:30)
[2020-05-30] MEDS ORDERED: AZITHROMYCIN 500MG/ 250ML 250 ML IV ONE (17:30)
[2020-05-30] MEDS ORDERED: ACETAMINOPHEN 325 MG TAB PO PRN (17:30)
[2020-05-30] MEDS ORDERED: ONDANSETRON HCL 4 MG/2 ML VIAL IV PRN (17:30)
[2020-05-30] MEDS: IPRATROPIUM BROM 0.5 MG/2.5ML INH SOL NEB SCH ×3 (18:33→22:34)
--- NOTE | 2020-05-30 18:40 | NUR ---
AT BEDSIDE FOR MED DANIEL BASILIO.
[2020-05-30] MEDS: SODIUM CHLORIDE 0.9% 1,000 ML IV SCH (18:53)
[2020-05-30] MEDS: FUROSEMIDE 20 MG/2 ML VIAL IV SCH (18:55)
--- NOTE | 2020-05-30 19:00 | NUR ---
Opening Shift Note Assumed care of patient, awake and alert. No S/S of distress/SOB or pain. Patient on 1L n/c oxygen saturation 96%. bed locked in lowest position, side rails up x2, call light within reach. Instructed on POC and to call for assist PRN, will continue to monitor for changes Q1hr and PRN.
[2020-05-30 19:20] LABS: Cholesterol 208 mg/dL (< 200); HDL Cholesterol 77 mg/dL (40-59); LDL Cholesterol 129 mg/dL (< 100); Triglycerides 74 mg/dL (< 150)
--- NOTE | 2020-05-30 19:30 | NUR ---
ROUNDS PATIENT AMBULATED TO RESTROOM, SOB ON EXERTION. APPLIED NONSLIP SOCKS AND BED ALARM. INSTRUCTED TO CALL WHEN AMBULATING, VERBALIZED UNDERSTANDING.
[2020-05-30 20:00] VITALS: BP 144/67
[2020-05-30] MEDS ORDERED: traZODone HCL 50 MG TAB PO SCH (22:00)
--- NOTE | 2020-05-30 22:00 | NUR ---
IV insertion IV access obtained, via clean sterile technique by inserting 22 gauge catheter at right forearm after two attempts. IV secured properly. No trauma to site. Patient tolerated procedure well.
--- NOTE | 2020-05-30 22:17 | NUR ---
AT BEDSIDE FOR MED DANIEL BASILIO. RN AT BEDSIDE OBTAINING IV ACCESS AT THIS TIME. WILL RETURN TO ADMINISTER NEB MEDS.
--- NOTE | 2020-05-30 22:37 | NUR ---
RETURNED TO BEDSIDE TO ADMINISTER MED DANIEL TX.
[2020-05-30 22:42] VITALS: BP 144/67
--- NOTE | 2020-05-30 22:45 | NUR ---
PT REQUESTING NOT TO BE WOKEN UP FOR 0200 MED [facility] [place]. WILL COMMUNICATE WITH RN. WILL CONTINUE TO MONITOR.
[2020-05-30] MEDS: hydrALAZINE HCL 20 MG/ML VL IV SCH (23:10)
--- NOTE | 2020-05-31 00:30 | NUR ---
PATIENT REPORTS FEELING DIZZY POST APRESOLINE ADMINISTRATION. BLOOD PRESSURE 127/63 HEART RATE 85 BPM, OXYGEN SATURATION 96%. DIZZINESS SUBSIDED WITH DEEP BREATHING TECHNIQUES, PATIENT STATES, "I NOW FEEL BETTER, MAYBE IT WAS THE DROP IN BLOOD PRESSURE"
[2020-05-31] MEDS: IPRATROPIUM BROM 0.5 MG/2.5ML INH SOL NEB SCH ×6 (02:00→22:00)
[2020-05-31 05:00] VITALS: BP 134/67
[2020-05-31] MEDS: hydrALAZINE HCL 20 MG/ML VL IV SCH (05:11)
[2020-05-31] MEDS: FUROSEMIDE 20 MG/2 ML VIAL IV SCH (05:12)
--- NOTE | 2020-05-31 06:05 | NUR ---
ROUNDS PATIENT RESTING IN THE HIGH FOWLERS POSITION. NO SINGS OF DISTRESS/ SOB.
[2020-05-31] MEDS: ALBUTEROL SULF 2.5 MG/0.5ML(0.5%) NEB SOLN NEB PRN ×4 (06:19→18:30)
--- NOTE | 2020-05-31 08:30 | NUR ---
Opening Note Assumed care of patient, she is A & O x 4, no s/s of distress. Patient is SOB with conversation and especially with exertion. Patients says she is comfortable at this time, that she has been breathing like this for months. Lungs sound clear, but diminished posterior bilaterally in lung bases. Patient states she has some phlegm production greenish yellow in color. Educated patient regarding SOB signs and symptoms to watch for and PRN medications if needed. Will continue to monitor Q1h and PRN. Patient also informed me that she was given an IV blood pressure medication last night that almost made her pass out. Will address this with MD, she does not want that medication anymore. Bed is in lowest locked position, call light within reach.
[2020-05-31] MEDS: AZITHROMYCIN 500MG/ 250ML 250 ML IV SCH (09:37)
[2020-05-31] MEDS: HYDROcodone-ACET 5/325MG TAB PO PRN ×2 (09:38→19:18)
[2020-05-31] MEDS: ENOXAPARIN SOD 40 MG/0.4 ML SYRINGE SC SCH (09:38)
[2020-05-31] MEDS: ISOSORBIDE MONONITRATE ER 60 MG TAB PO SCH (09:40)
[2020-05-31] MEDS: SODIUM CHLORIDE 0.9% 1,000 ML IV SCH (09:43)
[2020-05-31] MEDS ORDERED: NIFEdipine ER 30 MG TAB PO SCH (10:00)
[2020-05-31 10:08] VITALS: BP 105/64
[2020-05-31 11:46] LABS: Urine WBC None Seen /hpf (0 - 5)
--- NOTE | 2020-05-31 11:50 | NUR ---
IV infiltrated to left hand Saline running when patient reported swelling to he left hand, IV removed, warm pack placed on hand, patient tolerated well. Will continue to monitor.
[2020-05-31 11:54] LABS: Urine Bacteria NONE SEEN /hpf (None Seen); Urine Blood Negative /uL (Negative); Urine Hyaline Cast FEW /lpf (0 - 2); Urine Specific Gravity 1.009 (1.001-1.035)
[2020-05-31 12:12] LABS: Alcohol, Urine < 3.0 mg/dL (0-10); Amphetamine Screen, Urine NEGATIVE (NEGATIVE); Barbiturate Scree,Urine NEGATIVE (NEGATIVE); Benzodiazephine Screen, Urine NEGATIVE (NEGATIVE); Cannabinoid Screen, Urine NEGATIVE (NEGATIVE); Cocaine Screen, Urine NEGATIVE (NEGATIVE); Opiate Scree,Urine NEGATIVE (NEGATIVE); Phencyclidine Screen, Urine NEGATIVE (NEGATIVE)
[2020-05-31] MEDS ORDERED: methylPREDNISolone SOD SUCC 125 MG/2 ML VL IV ONE (12:30)
[2020-05-31] MEDS ORDERED: BUDESONIDE (INHALATION) 0.5 MG/2 ML NEB NEB ONE (12:30)
[2020-05-31] MEDS ORDERED: cefTRIAXone 1GM/50ML D5W 50 ML IV ONE (12:30)
[2020-05-31 13:00] VITALS: BP 106/62
--- NOTE | 2020-05-31 14:00 | NUR ---
Unable to get IV access. Paged Picc line nurse for Midline placement.
--- NOTE | 2020-05-31 14:43 | NUR ---
Midline Placement: Patient educated on need for midline placement. All risks and benefits explained and all questions and concerns addresses prior to procedure. 18 g/10 cm midline inserted via RIGHT BRACHIAL vein using Ultrasound. Sterile technique utilized. Blood return obtained from THE SINGLE lumen and flushed easily with NS using proper technique. Midline secured with saline lock; biodisc and occlusive dressing applied. Primary RN JOSE notified. Midline lot # [id number]
--- NOTE | 2020-05-31 14:44 | NUR ---
MIDLINE PLACED TO RIGHT UPPER ARM. Will medicate per orders.
[2020-05-31] MEDS: POTASSIUM CHL 20 Meq TABLET PO SCH (14:51)
[2020-05-31] MEDS: FUROSEMIDE 40 MG TAB PO SCH (14:52)
[2020-05-31 17:00] VITALS: BP 112/64
[2020-05-31] MEDS: BUDESONIDE (INHALATION) 0.5 MG/2 ML NEB NEB SCH (18:30)
--- NOTE | 2020-05-31 19:15 | NUR ---
Opening Shift Note Assumed care of patient, awake and alert. Patient on 1L N/C oxygen saturation 93% with no S/S of distress/SOB or pain. Bed locked in lowest position, side rails up X2, call light within reach. Instructed on POC and to call for assist PRN, will continue to monitor for changes Q1hr and PRN.
--- NOTE | 2020-05-31 19:18 | NUR ---
PAIN MANAGEMENT PATIENT COMPLAINS OF 6/10 THROBBING PAIN ON BACK OF HEAD. NORCO 5/325 ADMINISTERED PER PROTOCOL.
[2020-05-31] MEDS: traZODone HCL 50 MG TAB PO SCH (21:00)
[2020-05-31] MEDS: methylPREDNISolone SOD SUCC 40 MG/ML VL IV SCH (21:01)
[2020-05-31 22:00] VITALS: BP 124/67
--- NOTE | 2020-05-31 22:00 | NUR ---
Respiratory note: PT REFUSED SCHEDULED MED NEB TX AT THIS TIME. PT WAS SLEEPING AND STATING SHE FELT "FINE AT THIS TIME". PT ALSO REFUSED TO WEAR CPAP STATING SHE IS CLAUSTROPHOBIC AND DID NOT LIKE NONE OF OUR INTERFACES. ADVISED PT SHE IS ABLE TO BRING IN HER OWN NASAL PILLOWS THAT SHE USES AT HOME BUT DOES HAVE TO USE THE HOSPITAL'S CPAP MACHINE.
--- NOTE | 2020-06-01 00:45 | NUR ---
ROUNDS PATIENT ASLEEP IN THE LOW FOWLERS POSITION ON HER RIGHT SIDE. PATIENT ON 1L N/C AND NO SIGNS OF DISTRESS/ SOB AT THIS TIME.
[2020-06-01 05:00] VITALS: BP 102/54
[2020-06-01] MEDS: BUDESONIDE (INHALATION) 0.5 MG/2 ML NEB NEB SCH ×2 (07:03→19:02)
[2020-06-01] MEDS: IPRATROPIUM BROM 0.5 MG/2.5ML INH SOL NEB SCH ×5 (07:04→22:00)
[2020-06-01] MEDS: ALBUTEROL SULF 2.5 MG/0.5ML(0.5%) NEB SOLN NEB PRN ×2 (07:05→14:44)
[2020-06-01 09:00] VITALS: BP 118/64
[2020-06-01] MEDS: cefTRIAXone 1GM/50ML D5W 50 ML IV SCH (09:13)
[2020-06-01] MEDS: HYDROcodone-ACET 5/325MG TAB PO PRN ×3 (09:25→21:25)
[2020-06-01] MEDS ORDERED: IOHEXOL 350 MG/ML 100ML IJ ONE (10:57)
[2020-06-01] MEDS: methylPREDNISolone SOD SUCC 40 MG/ML VL IV SCH ×2 (11:02→21:11)
[2020-06-01] MEDS: AZITHROMYCIN 500MG/ 250ML 250 ML IV SCH (11:02)
[2020-06-01] MEDS: FUROSEMIDE 40 MG TAB PO SCH (11:03)
[2020-06-01] MEDS: POTASSIUM CHL 20 Meq TABLET PO SCH (11:03)
[2020-06-01] MEDS: ISOSORBIDE MONONITRATE ER 60 MG TAB PO SCH (11:04)
[2020-06-01] MEDS: ENOXAPARIN SOD 40 MG/0.4 ML SYRINGE SC SCH (11:05)
[2020-06-01 13:00] VITALS: BP 117/71
[2020-06-01 17:00] VITALS: BP 133/77
--- NOTE | 2020-06-01 19:07 | NUR ---
AT BEDSIDE FOR MED DANIEL BASILIO.
--- NOTE | 2020-06-01 19:30 | NUR ---
Opening Shift Note Assumed care of patient, awake and alert. No S/S of distress/SOB or pain. Instructed on POC and to call for assist PRN, will continue to monitor for changes Q1hr and PRN.
[2020-06-01] MEDS: traZODone HCL 50 MG TAB PO SCH (21:11)
[2020-06-01 22:00] VITALS: BP 130/77
--- NOTE | 2020-06-01 22:17 | NUR ---
AT BEDSIDE FOR MED NEB TX. PT WISHES NOT TO BE WOKEN UP FOR TXS ANYMORE. WILL CONTINUE TO MONITOR. PT AWARE I CAN BE PAGED AT ANY TIME PT FEELS SOB OR HAVING ANY CONCERN WITH HER BREATHING. WILL CONTINUE TO MONITOR. WILL COMMUNICATE PTS REFUSAL TO RN.
[2020-06-02] MEDS: IPRATROPIUM BROM 0.5 MG/2.5ML INH SOL NEB SCH ×6 (02:00→21:08)
[2020-06-02 05:00] VITALS: BP 112/64
[2020-06-02] MEDS: DOCUSATE SOD 100 MG CAP PO PRN (06:25)
[2020-06-02] MEDS: ALBUTEROL SULF 2.5 MG/0.5ML(0.5%) NEB SOLN NEB PRN ×4 (06:52→21:08)
--- NOTE | 2020-06-02 07:30 | NUR ---
closing note endorsed care to day RN, denies distress/pain at this time
[2020-06-02 08:00] VITALS: BP 128/84
[2020-06-02] MEDS: cefTRIAXone 1GM/50ML D5W 50 ML IV SCH (08:38)
[2020-06-02] MEDS: HYDROcodone-ACET 5/325MG TAB PO PRN (08:55)
[2020-06-02 09:00] VITALS: BP 128/69
[2020-06-02] MEDS: BUDESONIDE (INHALATION) 0.5 MG/2 ML NEB NEB SCH ×2 (10:00→21:08)
[2020-06-02] MEDS: AZITHROMYCIN 500MG/ 250ML 250 ML IV SCH (10:06)
[2020-06-02] MEDS: ISOSORBIDE MONONITRATE ER 60 MG TAB PO SCH (11:06)
[2020-06-02] MEDS: methylPREDNISolone SOD SUCC 40 MG/ML VL IV SCH (11:06)
[2020-06-02] MEDS: ENOXAPARIN SOD 40 MG/0.4 ML SYRINGE SC SCH (11:07)
[2020-06-02] MEDS: POTASSIUM CHL 20 Meq TABLET PO SCH (11:08)
[2020-06-02] MEDS: FUROSEMIDE 40 MG TAB PO SCH (11:14)
--- NOTE | 2020-06-02 11:33 | NUR ---
RT NOTE: MED NEB TX. MISSED DUE TO THERAPIST IN A CODE BLUE IN ER. PT. ASSESSED AT 1133, AND PT. DENIES ANY SOB. PT. HR 52, RR 18, POX 92% R/A. PT. AWARE OF NEXT SCHEDULED MED NEB TX. AND ADVISED TO NOTIFY RN IF BREATHING TX. IS NEEDED BEFORE NEXT SCHEDULED.
[2020-06-02 13:00] VITALS: BP 130/70
--- NOTE | 2020-06-02 15:22 | NUR ---
Nutrition Assessment Notes please see attached link for complete assessment Est [employer] needs ABW [id number] kcals (23-25 kcal/kgABW), Est Protein needs: 59-65 gms/day (1.0-1.1 gm/kgABW ) Will continue to monitor and reassess prn. Reassessed Addendum: 06/02/20 at [address] Amended: Links added.
--- NOTE | 2020-06-02 16:04 | NUR ---
Assessment Patient is a 75-year-old female, who is alert and oriented. Patient cognitive abilities are intact. Patient stated that she can do all ADLs and ambulate independently. Patient stated that she lives with her (Kole [phone]). Patient stated that she receives [employer] pension as income. Patient that she will return home post discharge from [facility]. Patient stated that her has will provide transportation post discharge. Patient stated that her is her support system. Patient stated that she has an Advance Directive on file at [facility]. Discharge planning: Patient has no post discharge needs to identify at this moment. Addendum: 06/02/20 at 1605 by JACK GU Amended: Links added.
[2020-06-02 17:00] VITALS: BP 124/70
[2020-06-02] MEDS: traZODone HCL 50 MG TAB PO SCH (21:08)
--- NOTE | 2020-06-02 21:08 | NUR ---
RT at bedside, as per RT pt's O2 sat 94% in room air. refused stool softener tonight.denies any distress at this time
[2020-06-02 22:00] VITALS: BP 137/76
[2020-06-03 01:56] VITALS: BP 137/76
[2020-06-03] MEDS: ALBUTEROL SULF 2.5 MG/0.5ML(0.5%) NEB SOLN NEB PRN ×4 (02:26→15:44)
[2020-06-03] MEDS: IPRATROPIUM BROM 0.5 MG/2.5ML INH SOL NEB SCH ×5 (02:26→18:46)
[2020-06-03 05:00] VITALS: BP 161/63
[2020-06-03] MEDS: BUDESONIDE (INHALATION) 0.5 MG/2 ML NEB NEB SCH ×2 (06:29→18:46)
[2020-06-03] MEDS: DOCUSATE SOD 100 MG CAP PO PRN (06:33)
--- NOTE | 2020-06-03 07:20 | NUR ---
closing note endorsed care to day RN, no distress/pain at this time
[2020-06-03] MEDS: cefTRIAXone 1GM/50ML D5W 50 ML IV SCH (08:44)
[2020-06-03 09:00] VITALS: BP 156/69
[2020-06-03] MEDS ORDERED: AZITHROMYCIN 250 MG TAB PO SCH (10:00)
[2020-06-03] MEDS ORDERED: predniSONE 20 MG TAB PO SCH (10:00)
[2020-06-03] MEDS: FUROSEMIDE 40 MG TAB PO SCH (10:57)
[2020-06-03] MEDS: POTASSIUM CHL 20 Meq TABLET PO SCH (10:58)
[2020-06-03] MEDS: ISOSORBIDE MONONITRATE ER 60 MG TAB PO SCH (10:58)
--- NOTE | 2020-06-03 12:15 | NUR ---
MD AT BEDSIDE DR. GOULD WAS IN TO SEE PATIENT AND MD LEFT ORDER FOR PATIENT'S DISCHARGE AND PATIENT IS AWARE.
[2020-06-03 13:00] VITALS: BP 148/76
[2020-06-03 17:00] VITALS: BP 160/84
== END 2020-06-03 21:09 | disposition home or self-care (01) | DRG 193 ==
LOC: ER 10:41 → TELE 10:42 → TELE-WESTW 15:21
PROVIDERS: ADMIT Hospitalist; ATTEND Internal Medicine
PROC: 5A09357 Assistance with Respiratory Ventilation, Less than 24 Consecutive Hours, Continuous Positive Airway Pressure (ICD-10-PCS; principal; 2020-06-02)
DX: J18.9 Pneumonia, unspecified organism (principal); J96.01 Acute respiratory failure with hypoxia; I50.31 Acute diastolic (congestive) heart failure; J44.1 Chronic obstructive pulmonary disease with (acute) exacerbation; N17.9 Acute kidney failure, unspecified; J44.0 Chronic obstructive pulmonary disease with (acute) lower respiratory infection; M35.1 Other overlap syndromes; F11.20 Opioid dependence, uncomplicated; M41.9 Scoliosis, unspecified; E66.01 Morbid (severe) obesity due to excess calories; M19.90 Unspecified osteoarthritis, unspecified site; G89.4 Chronic pain syndrome; F32.9 Major depressive disorder, single episode, unspecified; G43.909 Migraine, unspecified, not intractable, without status migrainosus; I11.0 Hypertensive heart disease with heart failure; G47.30 Sleep apnea, unspecified; E78.5 Hyperlipidemia, unspecified; Z86.718 Personal history of other venous thrombosis and embolism; Z82.49 Family history of ischemic heart disease and other diseases of the circulatory system; Z80.9 Family history of malignant neoplasm, unspecified; Z86.73 Personal history of transient ischemic attack (TIA), and cerebral infarction without residual deficits; Z79.899 Other long term (current) drug therapy; Z79.51 Long term (current) use of inhaled steroids; Z87.891 Personal history of nicotine dependence; Z90.710 Acquired absence of both cervix and uterus; Z68.37 Body mass index [BMI] 37.0-37.9, adult
CPT/HCPCS: 36415; 36600; 71045; 71275; 80053; 80061; 80307; 81001; 82805; 83036; 83735; 83880; 84484; 85025; 87040; 87086; 93005; 93306; 93970; 94640; 94660; 96374; 96375; G0378; J0696

== ENCOUNTER → 2020-09-06 | Outpatient (CLI) | payer OTHER ==
[~2020-09-06] MED LIST changes: +ALBUAER3 IN; +AMLO-496 PO; -AMLO5TAB15 PO; +BUPIVACAINE HCL 0.25% P/F 10 ML VIAL ONE; +IOHEXOL 300 MG/ML 100ML BOTTLE IJ ONE; +ISOS30TA4 PO; +LIDOCAINE 2%HCL (LOCAL ANESTH.) INJ 20ML MDV ONE; -MONT10TA34 PO; +TIZA4CAP PO; -TOPI50TA32 PO; +methylPREDNISolone ACETATE 80 MG/ML VL ONE
== END | disposition home or self-care (01) ==
LOC: XY 08:22
PROVIDERS: ATTEND Orthopaedic Surgery Adult Reconstructive Orthopaedic Surgery
DX: M25.532 Pain in left wrist (principal); I50.9 Heart failure, unspecified; J44.9 Chronic obstructive pulmonary disease, unspecified; Z98.51 Tubal ligation status; Z20.822 Contact with and (suspected) exposure to COVID-19; Z98.890 Other specified postprocedural states; Z88.1 Allergy status to other antibiotic agents; Z88.8 Allergy status to other drugs, medicaments and biological substances; Z86.718 Personal history of other venous thrombosis and embolism; Z90.710 Acquired absence of both cervix and uterus; Z79.899 Other long term (current) drug therapy
CPT/HCPCS: 20605; 73100; 77002; A4223; J1040; J3490; Q9967; 76000

== ENCOUNTER 2020-12-09 07:43 | Day surgery (SDC) | payer OTHER ==
[2020-12-07 10:40] LABS: Basophils # (auto) 0 10 ^3/uL (0-0.2); Basophils % (auto) 0.4 % (0.0-2.0); Eosinophils # (auto) 0.1 10 ^3/uL (0-0.8); Eosinophils % (auto) 1.7 % (0.0-7.0); Hematocrit 41.9 % (36.0-46.0); Lymphocytes # (auto) 2.5 10 ^3/uL (0.4-5.4); Lymphocytes % (auto) 35.9 % (10.0-50.0); Mean Corpuscular Hemoglobin 28.6 pg (28.0-32.0); Mean Corpuscular Hgb Conc. 33.4 g/dL (32.0-36.0); Mean Corpuscular Volume 85.7 fL (80.0-100.0); Monocytes # (auto) 0.8 10 ^3/uL (0-1.3); Monocytes % (auto) 11.3 % (0.0-12.0); Neutrophils # (auto) 3.6 10 ^3/uL (1.6-8.6); Neutrophils % (auto) 50.7 % (37.0-80.0); Nucleated Red Blood Cells % 0.1 %; Platelet Count (auto) 239 10^3/uL (140-450); Red Blood Cells 4.89 10^6/uL (4.0-5.20)
[2020-12-07 10:57] LABS: INR 1.02 (0.9-1.15); Partial Thromboplastin Time 24.2 sec (23.0-31.2)
[2020-12-07 11:01] LABS: Albumin 3.8 g/dL (3.4-5.0); Potassium 3.9 mmol/L (3.5-5.1)
[2020-12-07 11:07] LABS: BUN/Creatinine Ratio 16.7; Bilirubin, Total 0.3 mg/dL (0.2-1.0); Total Protein 7.1 g/dL (6.4-8.2)
[~2020-12-09] VITALS: Ht 147.3 cm; Wt 80.3 kg
[~2020-12-09 07:43] MED LIST changes: +AMLO-489 PO; -AMLO-496 PO; -BUPIVACAINE HCL 0.25% P/F 10 ML VIAL ONE; -IOHEXOL 300 MG/ML 100ML BOTTLE IJ ONE; -ISOS30TA4 PO; -LIDOCAINE 2%HCL (LOCAL ANESTH.) INJ 20ML MDV ONE; +MECL25TA18 PO; +MONT10TA42 PO; +TOPI25TA43 PO; -methylPREDNISolone ACETATE 80 MG/ML VL ONE
[2020-12-09] MEDS ORDERED: IODIXANOL 320MG/ML 100ML BTL IV ONE (08:52)
[2020-12-09] MEDS ORDERED: LIDOCAINE 2%HCL (LOCAL ANESTH.) INJ 20ML MDV ONE (08:52)
[2020-12-09] MEDS ORDERED: ANGIOMAX 250 MG VIAL IV ONE (08:58)
[2020-12-09] MEDS ORDERED: MIDAZOLAM HCL 1MG/1ML-2 ML VIAL ONE ×2 (08:58→09:37)
[2020-12-09] MEDS ORDERED: fentaNYL CITRATE 100 MCG/2 ML VL ONE (08:58)
[2020-12-09] MEDS ORDERED: SODIUM CHL 0.9% 0 ML ONE (08:58)
[2020-12-09] MEDS ORDERED: LIDOCAINE VISCOUS 2% 15ML UD ONE (08:59)
[2020-12-09] MEDS ORDERED: LIDOCAINE VISCOUS 2% 15ML UD PO ONE (09:00)
[2020-12-09] MEDS ORDERED: ONDANSETRON HCL 4 MG/2 ML VIAL ONE (09:33)
== END 2020-12-09 13:06 | disposition home or self-care (01) ==
LOC: CATH 07:43
PROVIDERS: ATTEND Internal Medicine
DX: R06.02 Shortness of breath (principal); J44.9 Chronic obstructive pulmonary disease, unspecified; M19.90 Unspecified osteoarthritis, unspecified site; I11.0 Hypertensive heart disease with heart failure; Z20.822 Contact with and (suspected) exposure to COVID-19; Z98.890 Other specified postprocedural states; Z79.899 Other long term (current) drug therapy; Z86.73 Personal history of transient ischemic attack (TIA), and cerebral infarction without residual deficits; Z88.2 Allergy status to sulfonamides; Z88.7 Allergy status to serum and vaccine; Z86.718 Personal history of other venous thrombosis and embolism; Z98.51 Tubal ligation status; Z90.710 Acquired absence of both cervix and uterus; Z88.8 Allergy status to other drugs, medicaments and biological substances
CPT/HCPCS: 36415; 80053; 85025; 85610; 85730; 93312; 93460; C1751; C1760; C1887; C1894; J1644; J2250; J2405; J3010; Q9967; U0003; 99152; 99153

== ENCOUNTER → 2021-07-13 | Outpatient (CLI) | payer OTHER ==
[~2021-07-13] MED LIST changes: +MONT-8 PO; -MONT10TA42 PO
== END | disposition home or self-care (01) ==
LOC: XYW 13:24
PROVIDERS: ATTEND Internal Medicine
DX: I35.1 Nonrheumatic aortic (valve) insufficiency (principal); I11.0 Hypertensive heart disease with heart failure
CPT/HCPCS: 93306

== ENCOUNTER → 2022-01-23 | Outpatient (CLI) | payer OTHER ==
[~2022-01-23] MED LIST changes: +ATOR20TA50 PO
[2022-01-23 09:17] VITALS: BP 187/88
[2022-01-23 09:32] VITALS: BP 140/86
[2022-01-23 11:47] LABS: Basophils # (auto) 0 10 ^3/uL (0-0.2); Basophils % (auto) 0.3 % (0.0-2.0); Eosinophils # (auto) 0.1 10 ^3/uL (0-0.8); Eosinophils % (auto) 1.7 % (0.0-7.0); Hematocrit 43.6 % (36.0-46.0); Hemoglobin 14.1 g/dL (12.2-16.2); Mean Corpuscular Hemoglobin 27.3 pg (28.0-32.0); Mean Corpuscular Hgb Conc. 32.3 g/dL (32.0-36.0); Mean Corpuscular Volume 84.3 fL (80.0-100.0); Monocytes # (auto) 0.6 10 ^3/uL (0-1.3); Monocytes % (auto) 9.4 % (0.0-12.0); Neutrophils # (auto) 3.5 10 ^3/uL (1.6-8.6); Neutrophils % (auto) 56.6 % (37.0-80.0); Nucleated Red Blood Cells % 0.1 %; Red Blood Cells 5.17 10^6/uL (4.0-5.20); Red Cell Distribution Width 14.4 % (11.8-14.3); White Blood Cell 6.1 10^3/uL (4.4-10.8)
[2022-01-23 11:53] LABS: Potassium 3.8 mmol/L (3.5-5.1)
[2022-01-23 11:58] LABS: BUN/Creatinine Ratio 21.3
[2022-01-23 12:00] LABS: INR 0.95 (0.9-1.15); Partial Thromboplastin Time 23.9 sec (23.6-33.0)
== END | disposition home or self-care (01) ==
LOC: Rad HDHVI 08:53
PROVIDERS: ATTEND Internal Medicine Cardiovascular Disease
DX: J44.9 Chronic obstructive pulmonary disease, unspecified (principal); I70.0 Atherosclerosis of aorta; M40.294 Other kyphosis, thoracic region; S27.899A Unspecified injury of other specified intrathoracic organs, initial encounter; X58.XXXA Exposure to other specified factors, initial encounter; Y93.89 Activity, other specified; Y92.89 Other specified places as the place of occurrence of the external cause; Y99.8 Other external cause status
CPT/HCPCS: 36415; 71046; 80048; 85025; 85610; 85730; 93005; G0463

== ENCOUNTER 2022-01-25 06:35 | Day surgery (SDC) | payer OTHER ==
[~2022-01-25] VITALS: Ht 149.9 cm; Wt 77.1 kg
[2022-01-25] VITALS (8 sets, daily range): BP systolic 123–143; BP diastolic 79–82
[~2022-01-25 06:35] MED LIST changes: -MECL25TA18 PO
[2022-01-25] MEDS ORDERED: IOHEXOL 350 MG/ML 100ML IJ ONE ×2 (07:34→09:39)
[2022-01-25] MEDS ORDERED: fentaNYL CITRATE 100 MCG/2 ML VL ONE (09:12)
[2022-01-25] MEDS ORDERED: SODIUM CHL 0.9% 0 ML ONE (09:12)
[2022-01-25] MEDS ORDERED: MIDAZOLAM HCL 2MG/2ML 2ml VIAL (1mg/ml) ONE (09:12)
[2022-01-25] MEDS ORDERED: ANGIOMAX 250 MG VIAL IV ONE (09:12)
[2022-01-25] MEDS ORDERED: LIDOCAINE 2%HCL (LOCAL ANESTH.) INJ 10ml MDV ONE (09:13)
== END 2022-01-25 13:18 | disposition home or self-care (01) ==
LOC: CATH 06:35
PROVIDERS: ATTEND Internal Medicine Cardiovascular Disease
DX: R94.39 Abnormal result of other cardiovascular function study (principal); I25.10 Atherosclerotic heart disease of native coronary artery without angina pectoris; I10 Essential (primary) hypertension; E78.5 Hyperlipidemia, unspecified; E66.9 Obesity, unspecified; J44.9 Chronic obstructive pulmonary disease, unspecified; Z95.5 Presence of coronary angioplasty implant and graft; Z86.73 Personal history of transient ischemic attack (TIA), and cerebral infarction without residual deficits; Z87.891 Personal history of nicotine dependence; Z98.51 Tubal ligation status; Z90.710 Acquired absence of both cervix and uterus; Z82.49 Family history of ischemic heart disease and other diseases of the circulatory system; Z20.822 Contact with and (suspected) exposure to COVID-19; Z68.36 Body mass index [BMI] 36.0-36.9, adult
CPT/HCPCS: 75736; 93456; C1751; C1760; C1887; C1894; J1644; J2001; J2250; J3010; Q9967; U0003; 99152

== ENCOUNTER → 2022-03-16 | Outpatient (CLI) | payer OTHER | END | disposition home or self-care (01) | LOC: LAB 13:55 | PROVIDERS: ATTEND Nurse Practitioner Family | DX: H05.20 Unspecified exophthalmos (principal) | CPT/HCPCS: 36415; 84439; 84443 ==

== ENCOUNTER → 2022-06-07 | Outpatient (CLI) | payer OTHER ==
[2022-06-07 09:22] LABS: Basophils # (auto) 0 10 ^3/uL (0-0.2); Basophils % (auto) 0.5 % (0.0-2.0); Eosinophils # (auto) 0.2 10 ^3/uL (0-0.8); Eosinophils % (auto) 2.2 % (0.0-7.0); Hematocrit 44.2 % (36.0-46.0); Hemoglobin 14.3 g/dL (12.2-16.2); Lymphocytes # (auto) 2.4 10 ^3/uL (0.4-5.4); Lymphocytes % (auto) 33.8 % (10.0-50.0); Mean Corpuscular Hemoglobin 27.4 pg (28.0-32.0); Mean Corpuscular Hgb Conc. 32.3 g/dL (32.0-36.0); Mean Corpuscular Volume 84.9 fL (80.0-100.0); Monocytes # (auto) 0.6 10 ^3/uL (0-1.3); Monocytes % (auto) 8.8 % (0.0-12.0); Neutrophils # (auto) 3.8 10 ^3/uL (1.6-8.6); Neutrophils % (auto) 54.7 % (37.0-80.0); Nucleated Red Blood Cells % 0.1 %; Red Cell Distribution Width 15.1 % (11.8-14.3)
[2022-06-07 09:56] LABS: Albumin 3.7 g/dL (3.4-5.0); Calcium 9.2 mg/dL (8.5-10.1); Potassium 4.3 mmol/L (3.5-5.1)
[2022-06-07 10:01] LABS: BUN/Creatinine Ratio 19.4; Bilirubin, Total 0.5 mg/dL (0.2-1.0); Total Protein 6.8 g/dL (6.4-8.2)
== END | disposition home or self-care (01) ==
LOC: LAB 09:07
PROVIDERS: ATTEND Nurse Practitioner Family
DX: Z00.00 Encounter for general adult medical examination without abnormal findings (principal); E78.5 Hyperlipidemia, unspecified; I10 Essential (primary) hypertension
CPT/HCPCS: 36415; 80053; 80061; 85025

== ENCOUNTER → 2022-06-19 | Outpatient (CLI) | payer OTHER | END | disposition home or self-care (01) | LOC: Rad HDHVI 14:23 | PROVIDERS: ATTEND Internal Medicine Cardiovascular Disease | DX: R06.02 Shortness of breath (principal); E78.5 Hyperlipidemia, unspecified | CPT/HCPCS: 93306 ==

== ENCOUNTER → 2022-09-02 | Emergency (ER) | payer OTHER ==
[~2022-09-02] VITALS: Ht 149.9 cm; Wt 77.2 kg
[2022-09-02 22:14] LABS: Basophils # (auto) 0.1 10 ^3/uL (0-0.2); Basophils % (auto) 0.6 % (0.0-2.0); Eosinophils # (auto) 0.1 10 ^3/uL (0-0.8); Eosinophils % (auto) 1.5 % (0.0-7.0); Hematocrit 39.7 % (36.0-46.0); Lymphocytes # (auto) 2.3 10 ^3/uL (0.4-5.4); Mean Corpuscular Hemoglobin 28.3 pg (28.0-32.0); Mean Corpuscular Hgb Conc. 32.7 g/dL (32.0-36.0); Mean Corpuscular Volume 86.6 fL (80.0-100.0); Monocytes % (auto) 10.9 % (0.0-12.0); Neutrophils # (auto) 5.4 10 ^3/uL (1.6-8.6); Red Blood Cells 4.59 10^6/uL (4.0-5.20); Red Cell Distribution Width 14.6 % (11.8-14.3); White Blood Cell 8.9 10^3/uL (4.4-10.8)
[2022-09-02 22:31] LABS: Albumin 3.5 g/dL (3.4-5.0); Calcium 8.9 mg/dL (8.5-10.1); Potassium 4.3 mmol/L (3.5-5.1)
[2022-09-02 22:40] LABS: Bilirubin, Total 0.3 mg/dL (0.2-1.0); Total Protein 6.3 g/dL (6.4-8.2)
[2022-09-03 04:30] VITALS: BP 142/84
== END | disposition home or self-care (01) ==
LOC: ER 21:01
DX: S82.432A Displaced oblique fracture of shaft of left fibula, initial encounter for closed fracture (principal); R55 Syncope and collapse; J44.9 Chronic obstructive pulmonary disease, unspecified; E78.5 Hyperlipidemia, unspecified; I10 Essential (primary) hypertension; Z88.2 Allergy status to sulfonamides; Z88.8 Allergy status to other drugs, medicaments and biological substances; Z88.7 Allergy status to serum and vaccine; Z79.899 Other long term (current) drug therapy; Z86.73 Personal history of transient ischemic attack (TIA), and cerebral infarction without residual deficits; Z90.49 Acquired absence of other specified parts of digestive tract; Z90.710 Acquired absence of both cervix and uterus; Z98.890 Other specified postprocedural states; W18.39XA Other fall on same level, initial encounter; Y93.89 Activity, other specified; Y92.89 Other specified places as the place of occurrence of the external cause; Y99.8 Other external cause status
CPT/HCPCS: 29515; 36415; 73610; 80053; 85025; 93005

== ENCOUNTER → 2022-12-12 | Outpatient (CLI) | payer OTHER | END | disposition home or self-care (01) | LOC: Rad HDHVI 12:46 | PROVIDERS: ATTEND Internal Medicine Cardiovascular Disease | DX: I08.8 Other rheumatic multiple valve diseases (principal); I10 Essential (primary) hypertension | CPT/HCPCS: 93306 ==

== ENCOUNTER → 2023-09-02 | Outpatient (CLI) | payer OTHER ==
[~2023-09-02] MED LIST changes: -AMLO-489 PO; +AMLO1TAB22 PO; +TRAZ-227 PO; -TRAZ50TA2 PO
[2023-09-02 11:46] LABS: Basophils # (auto) 0 10 ^3/uL (0-0.2); Basophils % (auto) 0.7 % (0.0-2.0); Eosinophils # (auto) 0.1 10 ^3/uL (0-0.8); Eosinophils % (auto) 2.2 % (0.0-7.0); Hematocrit 40.9 % (36.0-46.0); Hemoglobin 13.2 g/dL (12.2-16.2); Lymphocytes # (auto) 1.9 10 ^3/uL (0.4-5.4); Lymphocytes % (auto) 29.1 % (10.0-50.0); Mean Corpuscular Hemoglobin 27.9 pg (28.0-32.0); Mean Corpuscular Hgb Conc. 32.3 g/dL (32.0-36.0); Mean Corpuscular Volume 86.3 fL (80.0-100.0); Monocytes # (auto) 0.8 10 ^3/uL (0-1.3); Monocytes % (auto) 11.6 % (0.0-12.0); Neutrophils # (auto) 3.7 10 ^3/uL (1.6-8.6); Neutrophils % (auto) 56.4 % (37.0-80.0); Red Blood Cells 4.74 10^6/uL (4.0-5.20); Red Cell Distribution Width 14.9 % (11.8-14.3); White Blood Cell 6.6 10^3/uL (4.4-10.8)
[2023-09-02 12:35] LABS: Alanine Aminotransferase 12 U/L (7-40); Alkaline Phosphatase 94 U/L (46-116); Anion Gap 6 (5-15); BUN/Creatinine Ratio 18.7 (10.0-20.0); Blood Urea Nitrogen 17 mg/dL (9-23); Calcium 9.6 mg/dL (8.5-10.1); Carbon Dioxide 28 mmol/L (20-30); Chloride 109 mmol/L (98-107); Glucose 91 mg/dL (74-106); LDL Cholesterol 87 mg/dL (< 100); Potassium 4.4 mmol/L (3.5-5.1); Sodium 143 mmol/L (136-145); Triglycerides 74 mg/dL (< 150)
[2023-09-02 12:36] LABS: Albumin 4.4 g/dL (3.2-4.8); Aspartate Aminotransferase 15 U/L (13-40); Cholesterol 154 mg/dL (< 200); HDL Cholesterol 59 mg/dL (40-59)
[2023-09-02 12:37] LABS: Bilirubin, Total 0.6 mg/dL (0.2-1.0); Total Protein 6.4 g/dL (5.7-8.2)
== END | disposition home or self-care (01) ==
LOC: LAB 11:03
DX: I13.0 Hypertensive heart and chronic kidney disease with heart failure and stage 1 through stage 4 chronic kidney disease, or unspecified chronic kidney disease (principal); I50.33 Acute on chronic diastolic (congestive) heart failure; N18.9 Chronic kidney disease, unspecified; R73.03 Prediabetes
CPT/HCPCS: 36415; 80053; 80061; 82043; 83036; 84439; 84443; 85025

== ENCOUNTER → 2024-09-28 | Outpatient (CLI) | payer OTHER ==
[2024-09-28 10:24] LABS: Basophils # (auto) 0 10 ^3/uL (0-0.2); Basophils % (auto) 0.5 % (0.0-2.0); Eosinophils # (auto) 0.2 10 ^3/uL (0-0.8); Eosinophils % (auto) 2.8 % (0.0-7.0); Hematocrit 44.1 % (36.0-46.0); Hemoglobin 14.5 g/dL (12.2-16.2); Lymphocytes % (auto) 34.4 % (10.0-50.0); Mean Corpuscular Hemoglobin 28.1 pg (28.0-32.0); Mean Corpuscular Hgb Conc. 32.8 g/dL (32.0-36.0); Mean Corpuscular Volume 85.7 fL (80.0-100.0); Monocytes # (auto) 0.7 10 ^3/uL (0-1.3); Monocytes % (auto) 12.3 % (0.0-12.0); Neutrophils # (auto) 2.9 10 ^3/uL (1.6-8.6); Nucleated Red Blood Cells % 0.1 %; Platelet Count (auto) 250 10^3/uL (140-450); Red Blood Cells 5.15 10^6/uL (4.0-5.20); Red Cell Distribution Width 14.1 % (11.8-14.3); White Blood Cell 5.7 10^3/uL (4.4-10.8)
[2024-09-28 11:13] LABS: Alanine Aminotransferase 11 U/L (7-40); Alkaline Phosphatase 95 U/L (46-116); Anion Gap 8 (5-15); Aspartate Aminotransferase 14 U/L (13-40); BUN/Creatinine Ratio 18.4 (10.0-20.0); Blood Urea Nitrogen 19 mg/dL (9-23); Calcium 9.9 mg/dL (8.7-10.4); Carbon Dioxide 28 mmol/L (20-31); Chloride 104 mmol/L (98-107); Glucose 101 mg/dL (74-106); Potassium 3.8 mmol/L (3.5-5.1); Sodium 140 mmol/L (136-145); Total Protein 7.1 g/dL (5.7-8.2); Triglycerides 95 mg/dL (< 150)
[2024-09-28 11:14] LABS: Cholesterol 175 mg/dL (< 200)
[2024-09-28 11:15] LABS: Bilirubin, Total 0.4 mg/dL (0.2-1.0)
[2024-09-28 11:25] LABS: Albumin 4.8 g/dL (3.2-4.8); HDL Cholesterol 62 mg/dL (40-59); LDL Cholesterol 101 mg/dL (< 100)
== END | disposition home or self-care (01) ==
LOC: LAB 09:29
PROVIDERS: ATTEND Nurse Practitioner Family
DX: I50.30 Unspecified diastolic (congestive) heart failure (principal); R73.9 Hyperglycemia, unspecified; Z00.01 Encounter for general adult medical examination with abnormal findings
CPT/HCPCS: 36415; 80053; 80061; 82043; 83036; 84443; 85025

== ENCOUNTER → 2025-04-16 | Outpatient (CLI) | payer OTHER ==
[2025-04-16 12:16] LABS: Alanine Aminotransferase 14 U/L (7-40); Albumin 4.2 g/dL (3.2-4.8); Alkaline Phosphatase 82 U/L (46-116); Anion Gap 10 (5-15); BUN/Creatinine Ratio 18.9 (10.0-20.0); Bilirubin, Total 0.5 mg/dL (0.2-1.0); Blood Urea Nitrogen 17 mg/dL (9-23); Calcium 9.2 mg/dL (8.7-10.4); Carbon Dioxide 26 mmol/L (20-31); Glucose 95 mg/dL (74-106); Potassium 4.2 mmol/L (3.5-5.1); Sodium 144 mmol/L (136-145); Total Protein 6.3 g/dL (5.7-8.2)
[2025-04-16 12:18] LABS: Chloride 108 mmol/L (98-107)
== END | disposition home or self-care (01) ==
LOC: LAB 10:30
PROVIDERS: ATTEND Nurse Practitioner Family
DX: R73.9 Hyperglycemia, unspecified (principal)
CPT/HCPCS: 36415; 80053; 83036

== ENCOUNTER 2025-06-11 08:43 | Outpatient (CLI) | payer OTHER ==
[2025-06-11 09:49] LABS: Alanine Aminotransferase 14 U/L (7-40); Albumin 4.2 g/dL (3.2-4.8); Alkaline Phosphatase 81 U/L (46-116); Anion Gap 9 (5-15); BUN/Creatinine Ratio 22.9 (10.0-20.0); Bilirubin, Total 0.4 mg/dL (0.2-1.0); Blood Urea Nitrogen 19 mg/dL (9-23); Calcium 9.0 mg/dL (8.7-10.4); Carbon Dioxide 28 mmol/L (20-31); Glucose 93 mg/dL (74-106); Potassium 4.1 mmol/L (3.5-5.1); Total Protein 6.6 g/dL (5.7-8.2)
[2025-06-11 09:53] LABS: Chloride 109 mmol/L (98-107); Sodium 146 mmol/L (136-145)
== END 2025-06-14 17:00 | disposition home or self-care (01) ==
LOC: LAB 08:43
PROVIDERS: ATTEND Internal Medicine
DX: I11.0 Hypertensive heart disease with heart failure (principal); I50.30 Unspecified diastolic (congestive) heart failure; R07.9 Chest pain, unspecified; R07.89 Other chest pain
CPT/HCPCS: 36415; 80053; 83880

== ENCOUNTER 2025-07-26 10:18 | Outpatient (CLI) | payer OTHER | END 2025-07-26 17:00 | disposition home or self-care (01) | LOC: XYW 10:18 | PROVIDERS: ATTEND Internal Medicine | DX: J44.9 Chronic obstructive pulmonary disease, unspecified (principal); R06.02 Shortness of breath | CPT/HCPCS: 94060; 94729 ==